=== PATIENT | female | born 1940 | race Caucasian/White ===

== ENCOUNTER 2020-09-14 12:04 | Outpatient (CLI) | payer MEDICARE, OTHER, SELFPAY ==
[2020-09-14 12:41] LABS: D Dimer 1.13 ug/mIFEU (0-0.59)
[2020-09-14 13:04] LABS: NT Pro B Type Natriuretic Pept 6289 pg/mL (0-450)
== END 2020-09-14 12:05 | disposition home or self-care (01) ==
LOC: LAB 12:06
PROVIDERS: Visit Provider Family Medicine
DX: R06.00 Dyspnea, unspecified (principal)
CPT/HCPCS: 83880; 85378

== ENCOUNTER 2021-10-07 12:46 | Outpatient (CLI) | payer MEDICARE, MEDICAID, SELFPAY ==
[2021-10-07 12:50] VITALS: BP 115/71; PULSE 58; RESP 17; TEMP 36.5; O2SAT 97; BMI 16.0
[2021-10-07 13:18] VITALS: BP 115/75; PULSE 50; RESP 20; TEMP 36.6; O2SAT 97
[2021-10-07 13:25] VITALS: BP 117/80; PULSE 50; RESP 17; TEMP 36.6; O2SAT 97
--- NOTE | 2021-10-07 17:53 | PC.NURSE ---
Addendum entered by Loretta Thorpe RN 10/07/21 18:05: Total of 24.6mL given before infusion ultimately paused/stopped Original Note: Pt began c/o chest discomfort 5 mins after infusion began. RN immediately stopped infusion, and obtained pt's current VS. Pt's SPO2 read 86%. Mask removed. RN educated pt to take deep breaths through nose/mouth while setting up portable O2 tank. After 1-2 mins of deep breathing and infusion paused, SPO2 carlos to 97%. Dr. Head and Cook Supervisor updated on current pt status. MD gave new orders that pt was no longer a candidate for covid infusion, and recommended pt to be seen by ED for possible cardiac workup. RN educated on need for ED transfer for further closer evaluation. Pt agreed. VSS and pt's chest discomfort reportedly resolved per pt. Pt transferred to ED after update given to oncoming floor, and taken by wheelchair. phoned and updated on situation and pt's current stable condition. ED RN met in covid waiting room and given transfer report. No other needs.
== END 2021-10-07 12:47 | disposition home or self-care (01) ==
LOC: OPS 12:49
PROVIDERS: PCP Family Medicine; Visit Provider Nurse Practitioner Family
DX: U07.1 COVID-19 (principal)
CPT/HCPCS: 96365

== ENCOUNTER 2021-10-07 13:56 | Emergency (ER) | payer MEDICARE, MEDICAID, SELFPAY ==
[2021-10-07 14:00] VITALS: BP 121/82; PULSE 79; RESP 18; TEMP 36.6; O2SAT 94; BMI 16.7
[2021-10-07 15:04] VITALS: RESP 18; O2SAT 95
--- NOTE | 2021-10-07 15:09 | ED_ITS ---
HPI - SOB/Dyspnea General: Chief Complaint: Shortness of Breath/Dyspnea Stated Complaint: CP post infusion History of Present Illness: HPI Narrative: Patient states a few minutes after she started her MCA infusion she felt some shortness of breath. Infusion was s topped. Patient states she feels fine now that shortness of breath just lasted for approximately a minute she denied any chest pain or any further problems. Sats have been normal. Triage nurse states that she has thick nails and that he thought that the sat was probably not correct at that time. Patient denies any fever or chills. Denies any productive cough. MD elicited complaint: shortness of breath (During MCA infusion) Pertinent past history: other (CHF and hypertension) Onset (ago): minute(s) Context: recent illness Timing: improved Severity: mild Exacerbating factors: nothing Associated symptoms: Reports no associated symptoms; Deny abdominal pain, chest pain, extremity pain, fever(s), nausea or vomiting Treatment prior to arrival: none Review of Systems Const: Denies: fever(s), chills or body aches Eyes: Denies: change in vision or blurry vision ENMT: Denies: throat pain or nasal congestion Card: Denies: chest pain or dyspnea on exertion Resp: Reports: dyspnea (Had shortness of breath lasting less than a minute during MCA infusion); Denies: productive cough or non-productive cough GI: Denies: abdominal pain, nausea or vomiting Musc: Denies: extremity pain Skin/Breast: Denies: rash Neuro: Denies: headache(s) Psych: Denies: anxiety or depression Krzysztof/Lymph: Denies: easy bruising PFSH ED PFSH: Medical History (Updated 08/30/21 @ 16:17 by Shay Macias MD) Atrial fibrillation CHF (congestive heart failure) Family History (Updated 08/26/21 @ 14:53 by Kerry Eduardo RN) Mother CAD (coronary artery disease) Hypertension Father CAD (coronary artery disease) Hypertension Sister Diabetes Hypertension Social History Smoking and tobacco status: never smoked Physical Exam Const: COMMON NORMALS: no acute distress, average body habitus and patient oriented x3 HENMT: COMMON NORMALS: normocephalic HEAD & SCALP: normal to inspection and normocephalic FACE & SINUS: normal facial exam Eye: COMMON NORMALS: conjunctivae normal GENERAL EYE: appearance normal, both eyes and all related structures CONJUNCTIVA: Yes conjunctivae normal Neck/C-Spine: COMMON NORMALS: no JVD Chest: COMMONS NORMALS: normal inspection of the chest Resp: COMMON NORMALS: normal respiratory effort and clear to auscultation bilaterally AUSCULTATION: clear to auscultation bilaterally Cardio: COMMON NORMALS: no JVD, regular rate and regular rhythm RATE: regular rate RHYTHM: regular rhythm GI: COMMON NORMALS: Normal to inspection, nondistended, normoactive bowel sounds present Extremity: COMMON NORMALS: normal to inspection and full ROM Neuro: COMMON NORMALS: patient oriented x3 Course Vital Signs: Vital signs: Vital Signs Temperature 97.9 F 10/07/21 14:00 Pulse Rate 79 10/07/21 14:00 Respiratory Rate 18 10/07/21 15:04 Blood Pressure 121/82 10/07/21 14:00 Pulse Oximetry 95 10/07/21 15:04 Discharge Plan Discharge Prescriptions: No Action carvedilol 12.5 mg tablet 12.5 mg PO BID RF: 0 spironolactone 25 mg tablet 25 mg PO DAILY RF: 0 latanoprost 0.005 % drops 1 drp ophthalmic (eye) DAILY RF: 0 vitamin B complex [B Complex-Vitamin B12] Tablet 1 tab PO DAILY RF: 0 coenzyme Q10 [Co Q-10] 100 mg capsule 100 mg PO DAILY RF: 0 ferrous sulfate 325 mg (65 mg iron) tablet 325 mg PO DAILY RF: 0 omega-3 fatty acids [Fish Oil Concentrate] 1,000 mg capsule 1,000 mg PO DAILY RF: 0 calcium carb-mag ox-zinc sulf 334-134-5 mg tablet 1 tab PO DAILY RF: 0 vitamin E 200 unit capsule 200 unit PO DAILY RF: 0 ascorbic acid (vitamin C) 1,000 mg tablet 1,000 mg PO DAILY RF: 0 folic acid 400 mcg tablet 0.4 mg PO DAILY RF: 0 pyridoxine (vitamin B6) 100 mg tablet 100 mg PO DAILY RF: 0 potassium chloride 20 mEq tablet extended release 20 meq PO DAILY RF: 0 fluticasone propionate [Allergy Relief (fluticasone)] 50 mcg/actuation spray,suspension 1 spray intranasal DAILY RF: 0 Eliquis 5 mg tablet 2.5 mg PO BID RF: 0 furosemide 40 mg tablet 20 mg PO DAILY RF: 0 meclizine 25 mg tablet 25 mg PO DAILY PRNRF: 0 Coding Level of Care Code ED W[employer]er for [employer]
[2021-10-07 15:38] VITALS: BP 137/92; PULSE 81; RESP 18; TEMP 36.7; O2SAT 95
[2021-10-07 15:40] VITALS: BP 137/92; PULSE 81; RESP 18; TEMP 36.7; O2SAT 95
== END 2021-10-07 15:42 | disposition home or self-care (01) ==
PROVIDERS: Emergency Provider Nurse Practitioner Family; PCP Family Medicine
DX: R06.02 Shortness of breath (principal); Z79.01 Long term (current) use of anticoagulants; I50.9 Heart failure, unspecified; U07.1 COVID-19
CPT/HCPCS: 96365; 99283

== ENCOUNTER → 2022-02-24 15:00 | Outpatient (BNVA) | payer MEDICARE, SELFPAY | PROVIDERS: PCP Family Medicine; Visit Provider Internal Medicine Cardiovascular Disease | DX: I48.19 Other persistent atrial fibrillation (principal); I11.0 Hypertensive heart disease with heart failure; I50.9 Heart failure, unspecified | CPT/HCPCS: 99214 ==

== ENCOUNTER 2022-04-26 21:17 | Inpatient (IN) | payer MEDICARE, MEDICAID, SELFPAY ==
[2022-04-26 21:25] VITALS: BP 118/67; PULSE 82; RESP 18; TEMP 36.4; O2SAT 99; BMI 16.5
--- NOTE | 2022-04-26 21:36 | ECG_ITS ---
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 Measurements Intervals [place] Rate: 78 P: [place]: QRS: 87 QRSD: 90 T: 73 QT: 369 QTc: 421 Interpretive Statements ATRIAL FIBRILLATION MODERATE ST DEPRESSION [0.05+ mV ST DEPRESSION] No previous ECG available for comparison Electronically Signed On 04-27-2022 20:58:34 CDT by Soraya Chadwick M.D. [email or web address] [email or web address] [email or web address] Ops [id number]
--- NOTE | 2022-04-26 21:36 | CTR_ITS ---
PROCEDURE INFORMATION: Exam: CT Head Without Contrast Exam date and time: 04/26/2022 9:50 PM Age: 81 years old Clinical indication: Visual disturbance and weakness, extremity; Patient HX: Sudden onset of left eye blurriness and left arm numbness. Recently stopped blood thinners for upcoming dental procedure. ; Additional info: CVA TECHNIQUE: Imaging protocol: Computed tomography of the head without contrast. Radiation optimization: All CT scans at this facility use at least one of these dose optimization techniques: automated exposure control; mA and/or kV adjustment per patient size (includes targeted exams where dose is matched to clinical indication); or iterative reconstruction. COMPARISON: No relevant prior studies available. RADIATION DOSE METRICS: Total DLP (mGy-cm): 1122.38 FINDINGS: Brain: There is no acute intracranial hemorrhage or mass effect. Moderate diffuse volume loss is within the range of normal for patient age. There are small vessel ischemic changes within the periventricular and subcortical white matter, but the normal cerda-white matter delineation is maintained. Cerebral ventricles: No ventriculomegaly. Paranasal sinuses: Visualized sinuses are unremarkable. No fluid levels. Mastoid air cells: Visualized mastoid air cells are well aerated. Bones/joints: Unremarkable. No acute fracture. Soft tissues: Unremarkable. CT/CT head wo con* [id number] IMPRESSION: No acute hemorrhage or edema.
--- NOTE | 2022-04-26 21:37 | W.ED.GENADLT ---
HPI - General Adult General: Chief complaint: General Medical Stated complaint: Left Side Body Numb Time Seen by Provider: 04/26/22 21:31 History of Present Illness: 81-year-old presents due to left-sided body and facial numbness and transient vision loss. She was watching TV and felt the vision in her left eye was blurry but this is now resolved. She also felt body and face numbness that is still present but improving. This started approximately 45 minutes ago. Patient was previously on Eliquis but was taken off of it several days ago in preparation for dental procedure. Denies any headache or any other focal pain. Denies any current vision change. Denies any focal weakness. Denies any hearing change. Denies any vertigo. Review of Systems Narrative: - CONSTITUTIONAL: Denies weight loss, fever and chills. - HEENT: Denies changes in vision and hearing. - RESPIRATORY: Denies SOB and cough. - CV: Denies palpitations and CP. - GI: Denies abdominal pain, nausea, vomiting and diarrhea. - : Denies dysuria and urinary frequency. - MSK: Denies myalgia and joint pain. - SKIN: Denies rash and pruritus. - NEUROLOGICAL: As above - PSYCHIATRIC: Denies suicidal ideation PFSH ED PFSH: Medical History (Updated 02/26/22 @ 21:44 by Prema Schultz MD) Atrial fibrillation CHF (congestive heart failure) Dizziness Surgical History (Updated 02/26/22 @ 21:44 by Prema Schultz MD) S/P coronary angiogram Family History Mother CAD (coronary artery disease) Hypertension Father CAD (coronary artery disease) Hypertension Sister Diabetes Hypertension Social History Smoking and tobacco status: never smoked Physical Exam Narrative: EXAM NARRATIVE: - GENERAL: Alert and oriented x 3. No acute distress. Well-nourished. - EYES: EOMI. Anicteric. - HENT: Atraumatic, no C-spine tenderness. Moist mucous membranes. No scleral icterus. No cervical lymphadenopathy. - LUNGS: Clear to auscultation bilaterally. No accessory muscle use. Equal lung sounds bilaterally. No respiratory distress. - CARDIOVASCULAR: Regular rate and rhythm. No murmur. No JVD. - ABDOMEN: Soft, non-tender and non-distended. Negative CVA tenderness bilaterally, no rebound or guarding, negative Logan sign. No palpable masses. - EXTREMITIES: No edema. Non-tender. - SKIN: No rashes or lesions. Warm. - NEUROLOGIC: No meningismus, left facial and body numbness. Slightly greater in the lower extremities and upper extremity. Otherwise no focal deficit. - PSYCHIATRIC: Cooperative. Appropriate mood and affect. Course Vital Signs: Vital signs: Vital Signs Temperature 97.6 F 04/26/22 21:25 Pulse Rate 82 04/26/22 21:25 Respiratory Rate 18 04/26/22 21:25 Blood Pressure 118/67 04/26/22 21: Pulse Oximetry 99 04/26/22 21:25 MDM - General Adult Medical Decision Making 81-year-old presents due to transient vision loss in the left eye and improving left-sided body numbness. No speech difficulty. There is no weakness. Vision is currently intact. Otherwise nonfocal neurologic sign. CT scan of the head does not reveal any intracranial hemorrhage. She has previously been on Eliquis due to A. fib but is stopped taking it Thursday in preparation for dental procedure next week. She denies any headache or jaw pain. Discussed with teleneurology at [facility] and at this time tPA is not recommended due to relatively minor debilitation from symptoms. They do not recommend emergent CTA but do recommend admission for MRI and stroke work-up. Remainder of lab work and imaging reviewed. Discussed with hospitalist and they agreed patient would benefit from admission. Patient admitted in stable condition. Further evaluation management per hospitalist team. Lab Data : 04/26/22 21:45 04/26/22 21:45 Laboratory Results WBC 4.8 10^3/uL (4.0-10.0) 04/26/22 21:45 RBC 3.67 10^6/uL (4.1-5.3) L 04/26/22 21:45 Hgb 11.5 g/dL (11.5-15.3) 04/26/22 21:45 Hct 36.2 % (37.0-47.0) L 04/26/22 21:45 MCV 98.6 fl (81-99) 04/26/22 21:45 MCH 31.3 pg (28.0-34.0) 04/26/22 21:45 MCHC 31.8 g/dL (30.0-36.0) 04/26/22 21:45 RDW 12.3 % (12.1-15.1) 04/26/22 21:45 Plt Count 204 10^3/cmm (130-400) 04/26/22 21:45 MPV 10.9 fL (7.4-10.4) H 04/26/22 21:45 Neut % (Auto) 68.1 % 04/26/22 21:45 Lymph % (Auto) 14.8 % 04/26/22 21:45 [place] % (Auto) 11.5 % 04/26/22 21:45 Eos % (Auto) 4.8 % 04/26/22 21:45 Baso % (Auto) 0.4 % 04/26/22 21:45 Neut # (Auto) 3.27 10^3/uL (1.8-7.7) 04/26/22 21:45 Lymph # (Auto) 0.7 10^3/uL (0.8-4.8) L 04/26/22 21:45 [place] # (Auto) 0.6 10^3/uL (0.2-0.9) 04/26/22 21:45 Eos # (Auto) 0.2 10^3/uL (0.0-0.8) 04/26/22 21:45 Baso # (Auto) 0.0 10^3/uL (0.0-0.1) 04/26/22 21:45 Nucleated RBC % (auto) 0 % 04/26/22 21:45 Nucleated RBCs # 0.0 /100WBC 04/26/22 21:45 PT Cancelled 04/26/22 21:45 INR Cancelled 04/26/22 21:45 APTT Cancelled 04/26/22 21:45 POC Glucose 149 mg/dL (70-110) H 04/26/22 21:45 EKG Data EKG 1: Other EKG comments: A. fib, rate of 78, no sign of acute ischemia or other acute abnormality. Discharge Plan Discharge Condition: Stable Prescriptions: No Action spironolactone 25 mg tablet 25 mg PO DAILY 0RF latanoprost 0.005 % drops 1 drp ophthalmic (eye) DAILY 0RF vitamin B complex [B Complex-Vitamin B12] Tablet 1 tab PO DAILY 0RF coenzyme Q10 [Co Q-10] 100 mg capsule 100 mg PO DAILY 0RF ferrous sulfate 325 mg (65 mg iron) tablet 325 mg PO DAILY 0RF omega-3 fatty acids [Fish Oil Concentrate] 1,000 mg capsule 1,000 mg PO DAILY 0RF calcium carb-mag ox-zinc sulf 334-134-5 mg tablet 1 tab PO DAILY 0RF Rx Instructions: administer with a meal vitamin E 200 unit capsule 200 unit PO DAILY 0RF ascorbic acid (vitamin C) 1,000 mg tablet 1,000 mg PO DAILY 0RF folic acid 400 mcg tablet 0.4 mg PO DAILY 0RF pyridoxine (vitamin B6) 100 mg tablet 100 mg PO DAILY 0RF potassium chloride 20 mEq tablet extended release 20 meq PO DAILY 0RF fluticasone propionate [Allergy Relief (fluticasone)] 50 mcg/actuation spray,suspension 1 spray intranasal DAILY 0RF Rx Instructions: administer into each nostril Eliquis 5 mg tablet 2.5 mg PO BID 0RF furosemide 40 mg tablet 20 mg PO DAILY 0RF meclizine 25 mg tablet 25 mg PO DAILY PRN0RF carvedilol 12.5 mg tablet 12.5 mg PO BID Qty: 180 2RF Rx Instructions: must administer with a meal/food Referrals: Rodrigue Dillon MD [Primary Care Provider] - Coding Level of Care Code ED Terrapin Fisher for [employer]
[2022-04-26 21:49] LABS: Glucose Point of Care 149 mg/dL (70-110)
[2022-04-26 21:53] LABS: Basophils % 0.4 %; Eosinophils # 0.2 10^3/uL (0.0-0.8); Eosinophils % 4.8 %; Hematocrit 36.2 % (37.0-47.0); Hemoglobin 11.5 g/dL (11.5-15.3); Lymphocytes # 0.7 10^3/uL (0.8-4.8); Lymphocytes % 14.8 %; Mean Corpuscular HGB Conc 31.8 g/dL (30.0-36.0); Mean Corpuscular Hemoglobin 31.3 pg (28.0-34.0); Mean Corpuscular Volume 98.6 fl (81-99); Mean Platelet Volume 10.9 fL (7.4-10.4); Monocytes # 0.6 10^3/uL (0.2-0.9); Monocytes % 11.5 %; Neutrophils # 3.27 10^3/uL (1.8-7.7); Neutrophils % 68.1 %; Nucleated Red Blood Cells % 0 %; Platelet Count 204 10^3/cmm (130-400); Red Blood Count 3.67 10^6/uL (4.1-5.3); Red Cell Distribution Width 12.3 % (12.1-15.1); White Blood Count 4.8 10^3/uL (4.0-10.0)
[2022-04-26 22:14] VITALS: BP 101/70; PULSE 78; RESP 19; O2SAT 90
[2022-04-26 22:16] LABS: Alanine Aminotransferase 15 U/L (0-33); Alkaline Phosphatase 62 IU/L (35-105); Blood Urea Nitrogen 24 mg/dL (8-23); Calcium 9.2 mg/dL (8.5-10.5); Carbon Dioxide 25 mmol/L (22-29); Chloride 96 mmol/L (98-107); Globulin 3.3 g/dL (1.3-4.6); Glucose 147 mg/dL (65-115); Osmolality Calculated 279 mOsm/kg (285-295); Sodium 131 mmol/L (136-145); Total Bilirubin 0.5 mg/dL (0.15-1.2); Total Protein 7.3 g/dL (6.6-8.7)
[2022-04-26 22:20] LABS: Anion Gap 14.3 (5-19); Aspartate Amino Transferase 27 U/L (0-32); Potassium 4.3 mmol/L (3.5-5.1)
[2022-04-26 22:30] VITALS: BP 125/82; PULSE 87; RESP 18; O2SAT 98
[2022-04-26 22:34] LABS: INR 1.05 (0.8-1.2)
[2022-04-26 22:35] LABS: Partial Thromboplastin Time 26.7 SECONDS (23.9-36.7)
[2022-04-26 22:45] VITALS: BP 125/82; PULSE 87; RESP 18; O2SAT 98
--- NOTE | 2022-04-26 23:30 | PM.HP ---
Providers/Chief Complaint Admitting Physician: Albin Nogueira Primary Care Provider: Rodrigue Dillon MD Chief Complaint: Left Side Body Numb History of Present Illness Very pleasant 81-year-old lady with history of nonvalvular atrial fibrillation, on Eliquis adjusted for her age and weight, severe MVR, was not found candidate for mitral clip, CHF. This evening she experienced symptoms of left-sided numbness, on the left side of her body including her upper and lower extremity, left side face. She tried shaking her left arm to see if that would improve the symptoms. This was accompanied by transient blurred vision. The symptoms started about 845 this evening. She was assessed in ER without acute findings on CT of the head, blood glucose 147, together with with telestroke services at [facility], and not found to be a candidate for tPA. Recommended hospitalization for additional assessment post CVA. Of note she recently she has been having an ache in her tooth. She normally wears partial dentures, and left upper premolar has been aching intermittently and broke off yesterday. She has had no significant facial swelling, no fevers or chills. She was started on Augmentin on Thursday, and stopped taking Eliquis instructed on Thursday in preparation for a procedure to remove the tooth on Thursday. She otherwise has been in baseline state of health. She was sitting in a chair watching TV when the events transpired. She denies any persistence of blurred vision. She denies any headache, has no temporal pain, denies any jaw claudication or any prior episodes of transient loss of vision. Complains only of occasional itchiness behind her ears. She and her family deny that she has an allergy to aspirin which is listed. They state it was listed due to her doctor telling her not to take aspirin together with anticoagulants was not to increase risk of bleeding without additional need for aspirin at the time. Review of Systems Const: Denies: fever(s), chills, body aches or malaise Eyes: Reports: blurry vision (now resolved); Denies: change in vision, eye discomfort or eye redness ENMT: Reports: dental pain and other (Occasional itchiness behind her ears); Denies: throat pain, oral sores or ear or mastoid pain Card: Denies: chest pain, edema, pre-syncope or dyspnea on exertion Resp: Denies: dyspnea, productive cough, change in phlegm color or hemoptysis GI: Denies: abdominal pain, nausea, vomiting, diarrhea, constipation, hematochezia or melena : Denies: flank pain, urinary frequency or hematuria Musc: Denies: back pain, joint swelling or joint redness Skin/Breast: Denies: rash or new lesions Neuro: Reports: numbness in extremities, sensory changes, lack of coordination (L side) and difficulty walking; Denies: headache(s), weakness in extremities, dizziness, confusion, Slurred speech present, difficulty communicating thoughts, seizure-like activity or involuntary movements Endo: Denies: polyuria or polydipsia Krzysztof/Lymph: Denies: easy bleeding or tender lymph nodes All/Imm: Denies: urticaria or tongue swelling Medications/Allergies Home Medications Medication Instructions Recorded Confirmed Last Taken Type apixaban 5 mg tablet (Eliquis) 2.5 mg PO BID tab 08/26/21 04/26/22 04/24/22 History ascorbic acid (vitamin C) 1,000 mg 1,000 mg PO DAILY tab 08/26/21 04/26/22 04/26/22 History tablet calcium carbonate 334 mg-magnesium 1 tab PO DAILY tab 08/26/21 04/26/22 04/26/22 History oxide 134 mg-zinc sulf 5 mg tablet coenzyme Q10 100 mg capsule (Co 100 mg PO DAILY 08/26/21 04/26/22 04/26/22 History Q-10) ferrous sulfate 325 mg (65 mg 325 mg PO DAILY 08/26/21 04/26/22 04/26/22 History iron) tablet fluticasone propionate 50 1 spray INTRANASAL DAILY 08/26/21 08/26/21 Unknown History mcg/actuation nasal spray,suspension (Allergy Relief (fluticasone)) folic acid 400 mcg tablet 0.4 mg PO DAILY 08/26/21 04/26/22 04/26/22 History furosemide 40 mg tablet 20 mg PO DAILY tab 08/26/21 04/26/22 10/07/21 08:00 History latanoprost 0.005 % eye drops 1 drp OPHTHALMIC (EYE) DAILY 08/26/21 04/26/22 04/26/22 History meclizine 25 mg tablet 25 mg PO DAILY PRN 08/26/21 04/26/22 Unknown History omega-3 fatty acids 1,000 mg 1,000 mg PO DAILY 08/26/21 04/26/22 04/26/22 History capsule (Fish Oil Concentrate) potassium chloride 20 mEq 20 meq PO DAILY 08/26/21 04/26/22 04/26/22 History tablet,extended release pyridoxine (vitamin B6) 100 mg 100 mg PO DAILY tab 08/26/21 04/26/22 04/26/22 History tablet spironolactone 25 mg tablet 25 mg PO DAILY 08/26/21 04/26/22 04/26/22 History vitamin B complex (B 1 tab PO DAILY 08/26/21 04/26/22 04/26/22 History Complex-Vitamin B12) vitamin E 200 unit capsule 200 unit PO DAILY 08/26/21 04/26/22 04/26/22 History carvedilol 12.5 mg tablet 12.5 mg PO BID #180 tab 12/19/21 04/26/22 04/26/22 Rx Allergies Allergy/AdvReac Type Severity Reaction Status Date / Time aspirin Allergy Unknown Unknown Verified 08/26/21 14:48 pseudoephedrine Allergy Unknown Unknown Verified 08/26/21 14:48 [From Sudafed] nitrofurantoin AdvReac Mild Abdominal Verified 08/26/21 08:43 [From Macrobid] Pain PFSH Acute PFSH: Medical History Atrial fibrillation CHF (congestive heart failure) Dizziness Surgical History S/P coronary angiogram Family History Mother CAD (coronary artery disease) Hypertension Father CAD (coronary artery disease) Hypertension Sister Diabetes Hypertension Social History Smoking and tobacco status: never smoked Alcohol intake: never Substance/Drug Use: never Lives independently: Yes Household members: spouse Marital status: Vitals/I&O/Wt Last Vital Signs Temp 97.6 F 04/26/22 21:25 Pulse 87 04/26/22 22:45 Resp 18 04/26/22 22:45 BP 125/82 04/26/22 22:45 Pulse Ox 98 04/26/22 22:45 Weight last 48 hrs Weight 40.823 kg Physical Exam Narrative: Accompanied at bedside by 3 of her granddaughters. Const: COMMON NORMALS: alert GENERAL APPEARANCE: cooperative ORIENTATION/CONSCIOUSNESS: Yes awake HENMT: COMMON NORMALS: normocephalic, EAC's normal, Normal external nose present and moist oral mucous membranes HEAD & SCALP: normocephalic NOSE: Normal external nose present EXTERNAL AUDITORY CANAL: EAC's normal OTHER: Broken upper left premolar, no significant erythema or swelling around it. Neck/C-Spine: COMMON NORMALS: no meningeal signs Chest: CHEST: Yes Symmetrical chest wall rise Resp: COMMON NORMALS: clear to auscultation bilaterally AUSCULTATION: clear to auscultation bilaterally Cardio: RATE: regular rate RHYTHM: abnormal rhythm irregularly irregular GI: COMMON NORMALS: Normal to inspection, nondistended, normoactive bowel sounds present, Soft to palpation and non-tender PALPATION: Yes Soft to palpation Extremity: COMMON NORMALS: no pedal edema Neuro: COMMON NORMALS: moves all extremities SENSORIUM/ORIENTATION: Yes alert MENINGEAL SIGNS: Yes no meningeal signs COORDINATION/BALANCE: [id number] test normal (subjectively feels some lack of coordination, but did well) and other (mild ataxia LLE) SPEECH: speech normal (No different than usual as per her family.) SENSORY EXAM: Yes extremities (Mildly diminished left side upper and lower, states improving.) MOTOR EXAM: Pronator motor function not present (Upper or lower) OTHER: She is keenly alert and responsive. No trouble with following directions or answering questions. 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 No trouble with horizontal tracking. Visual carey full to confrontation. Psych: COMMON NORMALS: mental status grossly normal Skin: COMMON NORMALS: no wounds RASHES: no rashes Data : 04/26/22 21:45 04/26/22 21:45 A&P Assessment and plan (1) CVA (cerebral vascular accident): Suspected CVA, symptoms started around 8:45 PM this evening. With some numbness, left upper and lower as well as facial Had some transient blurred vision, but this is resolved. Reports numbness on the left side is improving. He is noted to have some minimal ataxia on the left lower, left upper subjectively, but did well on FNF. Walk to the bathroom with some standby assist due to some loss of coordination on the left side. She was not found a candidate for tPA with telestroke neurology assessment. 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 Start aspirin, statin. (Please see above regarding noted aspirin allergy). Permissive hypertension for now. For now Lovenox, however, depending on her progress in the hospital, consider either resumption of Eliquis with delay of dental procedure until after without other acute stroke phase, or if needing more urgent procedure in case of progressive dental infection or other concerns, consider continue Lovenox. Depending on consideration of risk of bleeding, if minor procedure, consider holding anticoagulation closer to the procedure. If low risk procedure perhaps could be considered performed perhaps about 48 hours after Eliquis dose considering her renal function. If moderate to severe risk of bleeding, may need to hold longer. At this time no Plavix as stroke is suspected rather cardioembolic, but also in addition with some loss of coordination and with aspirin and anticoagulant on board, dual antiplatelet may increase risk of bleeding with some risk of fall. Additional assessment by PT, OT, ST. In case of high risk of falls found, with concern for bleeding risk being high, perhaps consideration may be given to assessment for left atrial appendage closure device. Additional assessment by carotid Doppler. TTE. Monitor on telemetry. I do see she has some episodes of bradycardia recorded in October, consider quality assurance monitor at discharge to exclude transient severe bradycardia or pauses as cause of transient hypoperfusion. Additionally MRI of the brain recommended by telestroke neurology on nonurgent basis. She has claustrophobia, and prefers to perform open MRI. Please refer her after discharge. Please refer her for follow-up with neurology in office within a week. At this time we have not seen evidence of dental infection causing sepsis or causing her symptoms, but monitor for any changes. Has not had any other symptoms to suggest temporal arteritis. In case of appearance of symptoms, consider also assessment of inflammatory markers. UA has been ordered but she has not yet had enough in her to provide a sample. Status: Acute (2) Broken tooth: Continue amoxicillin. Will need follow-up with dentist, if possible would consider delaying procedure until she is after acute phase of CVA. Status: Acute (3) Atrial fibrillation: Carvedilol held for now for permissive hypertension. In case heart rates increasing, consider low-dose metoprolol to help with control. Anticoagulation considerations as above. Status: Acute Qualifiers: Atrial fibrillation type: persistent (not longstanding) Qualified Code(s): I48.19 - Other persistent atrial fibrillation Plan ISHA: Now with her lab work coming back I also see that she has minimal ISHA, creatinine 1.1 compared to usual around 1. Hold spironolactone for now. Recheck renal function. UA has been ordered, but she has not yet had to go. History of CHF: Not in exacerbation History of severe MVR, not found to be candidate for MitraClip Attestations Medical Necessity Statement*: Admission of over 2 midnights is anticipated for assessment of management of acute CVA, and lady of advanced age with recent dental problems, atrial fibrillation, anticoagulation, ISHA. Coding Level of Care Code Acute [facility] Knife Trimmer for [facility] Maryse Diagnoses CVA (cerebral vascular accident) I63.9 Broken tooth S02.5XXA Atrial fibrillation I48.19 Atrial fibrillation type: persistent (not longstanding)
[2022-04-26 23:55] VITALS: BP 126/79; PULSE 80; RESP 22; TEMP 36.6; O2SAT 97
[2022-04-27] MEDS: latanoprost 0.005% Op Soln 2.5 mL Btl 1 DROP EYE-BOTH (00:31)
[2022-04-27] MEDS: amoxicillin 500 mg Capsule PO ×2 (00:32→08:53)
[2022-04-27] MEDS: enoxaparin 40 mg/0.4 mL Syringe SUBCUT (00:32)
[2022-04-27 00:36] LABS: Bilirubin Urine Neg (Negative); Blood Urine Neg (Negative); Glucose Urine UA Norm (Normal); Ketones Urine Negative (Negative); Leukocyte Esterase Urine Negative (Negative); Nitrate Urine Negative (Negative); Protein Urine Neg (Negative); Urine Appearance Clear (CLEAR); Urine Color Yellow (Yellow); Urobilinogen Urine Neg (Negative); pH Urine 5 (5-7)
[2022-04-27 00:37] LABS: RBC Urine 0-4 /hpf (0-2); Squamous Epithelial Cell Urine 25-40 /hpf (0-5); WBC Urine 0-4 /hpf (0-5)
[2022-04-27 00:38] LABS: Add Urine Culture? No; Amorphous Sediment Urine TRACE /hpf; Bacteria Urine TRACE /hpf; Mucus Urine 1+ /hpf
[2022-04-27] MEDS: aspirin 81 mg EC Tablet 162 MG PO (01:22)
[2022-04-27 01:25] VITALS: BP 126/79; PULSE 80; RESP 22; TEMP 36.6
[2022-04-27 04:25] VITALS: BP 110/69; PULSE 80; RESP 14; TEMP 36.7; O2SAT 98
[2022-04-27 05:25] VITALS: BP 110/69; PULSE 80; RESP 14; TEMP 36.7
[2022-04-27 05:36] LABS: Basophils % 0.4 %; Eosinophils # 0.2 10^3/uL (0.0-0.8); Eosinophils % 3.2 %; Hematocrit 32.9 % (37.0-47.0); Hemoglobin 11.1 g/dL (11.5-15.3); Lymphocytes # 0.8 10^3/uL (0.8-4.8); Lymphocytes % 14.8 %; Mean Corpuscular HGB Conc 33.7 g/dL (30.0-36.0); Mean Corpuscular Hemoglobin 31.7 pg (28.0-34.0); Mean Platelet Volume 10.6 fL (7.4-10.4); Monocytes # 0.7 10^3/uL (0.2-0.9); Monocytes % 13.3 %; Neutrophils # 3.57 10^3/uL (1.8-7.7); Neutrophils % 67.5 %; Nucleated Red Blood Cells % 0 %; Platelet Count 181 10^3/cmm (130-400); Red Cell Distribution Width 12.2 % (12.1-15.1); White Blood Count 5.3 10^3/uL (4.0-10.0)
[2022-04-27 05:58] LABS: Anion Gap 13.1 (5-19); Blood Urea Nitrogen 22 mg/dL (8-23); Calcium 9.1 mg/dL (8.5-10.5); Carbon Dioxide 27 mmol/L (22-29); Chloride 101 mmol/L (98-107); Chol HDL Ratio 2.95 mg/dL (0.0-4.40); Cholesterol 165 mg/dL (0-200); Glucose 86 mg/dL (65-115); HDL Cholesterol 56 mg/dL (60-100); LDL Cholesterol Calculated 99 mg/dL (50-129); LDL HDL Ratio 1.77 RATIO (0.00-3.22); Osmolality Calculated 287 mOsm/kg (285-295); Potassium 4.1 mmol/L (3.5-5.1); Sodium 137 mmol/L (136-145); Triglycerides 51 mg/dL (0-150)
[2022-04-27 06:00] VITALS: PULSE 77
--- NOTE | 2022-04-27 06:00 | USCV_ITS ---
Donato Joy Age: 81 Gender: F : 1940 Exam Date: 04/27/2022 07:11 Ordering Phys: Albin Nogueira MD Technologist: Joel Langston Exam Location: [facility] [place] Indication: ? cva Risk Factors: Previous Vascular Surgery: Right Brachial BP: / Left Brachial BP: / Right Left Velocity (cm/s) Spectral Plaque Velocity (cm/s) Spectral Plaque Syst/Diast Broadening Syst/Diast Broadening 55.20/ 11.20 Prox CCA 44.90 / 12.00 34.80/ 7.90 Mid CCA 37.60 / 8.10 49.30/ 15.80 Distal CCA 41.40 / 8.10 67.80/ 13.20 Prox ICA 44.90 / 13.20 53.95/ 14.70 Mid ICA 52.60 / 12.80 54.40/ 16.70 Distal ICA 67.00 / 15.10 61.35 ECA 55.10 1.11 ICA/CCA 1.49 Antegrade Vertebral Antegrade 34.60/ 6.40 cm/s 57.20/ 15.10 cm/s Tri Subclavian Tri 60.70 92.00 FINDINGS Intimal thickening in the common carotid arteries bilaterally. Minimal plaques at the bifurcations and proximal internal carotid arteries Antegrade flow in the vertebral arteries bilaterally. Normal Doppler velocities in the external carotid, subclavian and vertebral arteries bilaterally CONCLUSIONS Minimal plaques at the bifurcations bilaterally, suggesting less than 50% stenosis. Intimal thickening in the common carotid arteries bilaterally No significant stenosis in the external carotid, subclavian and vertebral arteries bilaterally, based on the above findings Dr Soraya Chadwick MD [facility] (Electronically Signed) Final Date: 27 April 2022 10:13 S
[2022-04-27 06:20] LABS: Estmated Average Glucose 105; Hemoglobin A1C 5.3 % (4.0-6.0)
[2022-04-27 09:14] VITALS: BP 115/75; PULSE 94; RESP 12; TEMP 36.8; O2SAT 93
--- NOTE | 2022-04-27 11:23 | P.DS_ITS ---
Discharge Providers Date of Admission: 04/26/22 22:16 Date of Discharge: April 27, 2022 Attending Provider at Admission: Albin Nogueira Attending Provider at Discharge: Randell Hugo MD Primary Care Provider: Rodrigue Dillon MD Diagnoses at Discharge Discharge Diagnosis (1) CVA (cerebral vascular accident): (2) Broken tooth: (3) Atrial fibrillation: Qualifiers: Atrial fibrillation type: persistent (not longstanding) Qualified Code(s): I48.19 - Other persistent atrial fibrillation Reason for Visit Reason for Visit: Left Side Body Numb Hospital Course Hospital Course 81-year-old lady with pmh of Atrial.Fib, on Eliquis ,severe MVR, CHF.admitted for the management of Ac CVA as she presented with lt sided numbness in upper as well as lower extremity as well as on the lt sided of face.She had recently stopped taking her eliquis in preparation for denatl surgery to be done on coming thursday,she was not taking eliquis since thursday. She was kept on stroke protocol, C.T head without contrast: Failed to show any acute intracranial pathology,2D eCHO : Normal left ventricular size and systolic function, EF 69 %. No ?regional wall motion abnormalities.Markedly dilated left atrium. Moderately increased right atrial size. Normal RV size and ejection fraction.?Severe bileaflet mitral valve prolapse- grade 3.Moderate mitral valve regurgitation.Thickened aortic valve. Trace aortic valve regurgitation.Dalt-eo-tctqhbef tricuspid valve regurgitation. Thickened tricuspid valve.? Estimated pulmonary artery peak systolic pressure 42 mmHg?There is no pericardial effusion.?There are no intracardiac masses.She was kept on Aspirin,statin, eliquis was resumed, permissive HTN,Telemetry monitoring, PT Evaluation,at the time of discharge she had no significant lt sided weakness,had no speech, or swallow issues, sensations were intact,she was ambulating independently. She was discharged home in stable condition.She has been asked to consult her PCP,her Wellness Manager as well as dentist, regarding future course of her dental surgery,she is no strong indication for Brdiging Ac if the surgery is avoided for 1 to 3 months,if not lovenox can be used for bridging. Overall patient was discharged in stable condition.CTA was cancelled as based on my clinical assessment Posterior circulation stroke is less likely. Currently due to additional of aspirin to eliquis, her risk of bleeding has increased, this has been conveyed to her.Patient and family has verbalized understanding. Physical Exam Const: COMMON NORMALS: patient oriented x3 HENMT: COMMON NORMALS: normocephalic and atraumatic HEAD & SCALP: normocephalic and atraumatic Chest: CHEST: Yes Symmetrical chest wall rise Resp: COMMON NORMALS: clear to auscultation bilaterally EFFORT & INSPECTION: Yes symmetric chest movement AUSCULTATION: clear to auscultation bilaterally Cardio: COMMON NORMALS: regular rate, regular rhythm, S1 normal heart sound present, S2 normal heart sound present, No gallops present (Cardio), No murmurs present (Cardio), No rub (Cardio) and Peripheral pulses 2+ throughout RATE: regular rate RHYTHM: regular rhythm HEART SOUNDS: S1 normal heart sound present and S2 normal heart sound present PERIPHERAL PULSES: Peripheral pulses 2+ throughout GI: COMMON NORMALS: Normal to inspection, nondistended, normoactive bowel sounds present, Soft to palpation, non-tender, No hepatosplenomegaly present and no masses AUSCULTATION: Yes normoactive bowel sounds PALPATION: Yes Soft to palpation and Yes No hepatosplenomegaly present RECTAL EXAM: deferred Extremity: COMMON NORMALS: no clubbing, cyanosis or edema and no pedal edema Neuro: COMMON NORMALS: patient oriented x3 Discharge Data Studies Completed and Pending Completed Studies During Hospitalization Category Date Time Status CT head wo con* [id number] Stat Cat Scan 04/26/22 21:36 Completed CV carotid duplex BI* [id number] Routine Ultrasound 04/27/22 06:00 Completed CV. echo w/w bubble cont [id number] Routine Ultrasound 04/27/22 23:55 Completed Pending at discharge Category Date Time Status Basic Metabolic Panel AM LABS Lab 04/28/22 04:00 Ordered Basic Metabolic Panel AM LABS Lab 04/29/22 04:00 Ordered Basic Metabolic Panel AM LABS Lab 04/30/22 04:00 Ordered Complete Blood Count w/Auto AM LABS Lab 04/28/22 04:00 Ordered Complete Blood Count w/Auto AM LABS Lab 04/29/22 04:00 Ordered Complete Blood Count w/Auto AM LABS Lab 04/30/22 04:00 Ordered Radiology Impressions Head CT 04/26/22 21:36 IMPRESSION: No acute hemorrhage or edema. Laboratory Results WBC 5.3 10^3/uL (4.0-10.0) 04/27/22 05:10 RBC 3.50 10^6/uL (4.1-5.3) L 04/27/22 05:10 Hgb 11.1 g/dL (11.5-15.3) L 04/27/22 05:10 Hct 32.9 % (37.0-47.0) L 04/27/22 05:10 MCV 94.0 fl (81-99) 04/27/22 05:10 MCH 31.7 pg (28.0-34.0) 04/27/22 05:10 MCHC 33.7 g/dL (30.0-36.0) D 04/27/22 05:10 RDW 12.2 % (12.1-15.1) 04/27/22 05:10 Plt Count 181 10^3/cmm (130-400) 04/27/22 05:10 MPV 10.6 fL (7.4-10.4) H 04/27/22 05:10 Neut % (Auto) 67.5 % 04/27/22 05:10 Lymph % (Auto) 14.8 % 04/27/22 05:10 [place] % (Auto) 13.3 % 04/27/22 05:10 Eos % (Auto) 3.2 % 04/27/22 05:10 Baso % (Auto) 0.4 % 04/27/22 05:10 Neut # (Auto) 3.57 10^3/uL (1.8-7.7) 04/27/22 05:10 Lymph # (Auto) 0.8 10^3/uL (0.8-4.8) 04/27/22 05:10 [place] # (Auto) 0.7 10^3/uL (0.2-0.9) 04/27/22 05:10 Eos # (Auto) 0.2 10^3/uL (0.0-0.8) 04/27/22 05:10 Baso # (Auto) 0.0 10^3/uL (0.0-0.1) 04/27/22 05:10 Nucleated RBC % (auto) 0 % 04/27/22 05:10 Nucleated RBCs # 0.0 /100WBC 04/27/22 05:10 PT 14.00 SECONDS (12.1-14.9) 04/26/22 22:19 INR 1.05 (0.8-1.2) 04/26/22 22:19 APTT 26.7 SECONDS (23.9-36.7) 04/26/22 22:19 Sodium 137 mmol/L (136-145) 04/27/22 05:10 Potassium 4.1 mmol/L (3.5-5.1) 04/27/22 05:10 Chloride 101 mmol/L (98-107) 04/27/22 05:10 Carbon Dioxide 27 mmol/L (22-29) 04/27/22 05:10 Anion Gap 13.1 (5-19) 04/27/22 05:10 BUN 22 mg/dL (8-23) 04/27/22 05:10 Creatinine 1.0 mg/dL (0.5-0.9) H 04/27/22 05:10 GFR Calculation Not Reportable 04/27/22 05:10 Glucose 86 mg/dL (65-115) 04/27/22 05:10 POC Glucose 149 mg/dL (70-110) H 04/26/22 21:45 Estimat Average Glucose 105 04/27/22 05:10 Hemoglobin A1c 5.3 % (4.0-6.0) 04/27/22 05:10 Calculated Osmolality 287 mOsm/kg (285-295) 04/27/22 05:10 Calcium 9.1 mg/dL (8.5-10.5) 04/27/22 05:10 Total Bilirubin 0.5 mg/dL (0.15-1.2) 04/26/22 21:45 AST 27 U/L (0-32) 04/26/22 21:45 ALT 15 U/L (0-33) 04/26/22 21:45 Alkaline Phosphatase 62 IU/L (35-105) 04/26/22 21:45 Total Protein 7.3 g/dL (6.6-8.7) 04/26/22 21:45 Albumin 4.0 g/dL (3.5-5.2) 04/26/22 21:45 Globulin 3.3 g/dL (1.3-4.6) 04/26/22 21:45 Triglycerides 51 mg/dL (0-150) 04/27/22 05:10 Cholesterol 165 mg/dL (0-200) 04/27/22 05:10 LDL Cholesterol, Calc 99 mg/dL (50-129) 04/27/22 05:10 HDL Cholesterol 56 mg/dL (60-100) L 04/27/22 05:10 LDL/HDL Ratio 1.77 RATIO (0.00-3.22) 04/27/22 05:10 Cholesterol/HDL Ratio 2.95 mg/dL (0.0-4.40) 04/27/22 05:10 Urine Color Yellow (Yellow) 04/27/22 00:15 Urine Appearance Clear (CLEAR) 04/27/22 00:15 Urine pH 5 (5-7) 04/27/22 00:15 Ur Specific [place] 1.020 (1.005-1.030) 04/27/22 00:15 Urine Protein Neg (Negative) 04/27/22 00:15 Urine Glucose (UA) Norm (Normal) 04/27/22 00:15 Urine Ketones Negative (Negative) 04/27/22 00:15 Urine Blood Neg (Negative) 04/27/22 00:15 Urine Nitrate Negative (Negative) 04/27/22 00:15 Urine Bilirubin Neg (Negative) 04/27/22 00:15 Urine Urobilinogen Neg mg/dL (Negative) 04/27/22 00:15 Ur Leukocyte Esterase Negative (Negative) 04/27/22 00:15 Urine RBC 0-4 /hpf (0-2) H 04/27/22 00:15 Urine WBC 0-4 /hpf (0-5) H 04/27/22 00:15 Ur Squamous Epith Cells 25-40 /hpf (0-5) H 04/27/22 00:15 Amorphous Sediment Trace /hpf 04/27/22 00:15 Urine Bacteria Trace /hpf (NONE) 04/27/22 00:15 Urine Mucus 1+ /hpf 04/27/22 00:15 Urine Yeast Trace /hpf 04/27/22 00:15 Vitals Last Vital Signs Temp 98.2 F 04/27/22 09:14 Pulse 94 04/27/22 09:14 Resp 12 04/27/22 09:14 BP 115/75 04/27/22 09:14 Pulse Ox 93 04/27/22 09:14 Discharge Plan Discharge Patient Disposition: Home Condition: Stable Prescriptions: New aspirin 81 mg tablet,delayed release (DR/EC) 81 mg PO DAILY Qty: 30 3RF Lipitor 40 mg tablet 40 mg PO DAILY 30 Days Qty: 30 3RF Continued latanoprost 0.005 % drops 1 drp ophthalmic (eye) DAILY Rx Instructions: both eyes vitamin B complex [B Complex-Vitamin B12] Tablet 1 tab PO DAILY coenzyme Q10 [Co Q-10] 100 mg capsule 100 mg PO DAILY ferrous sulfate 325 mg (65 mg iron) tablet 325 mg PO DAILY omega-3 fatty acids [Fish Oil Concentrate] 1,000 mg capsule 1,000 mg PO DAILY calcium carb-mag ox-zinc sulf 334-134-5 mg tablet 1 tab PO DAILY Rx Instructions: administer with a meal vitamin E 200 unit capsule 200 unit PO DAILY ascorbic acid (vitamin C) 1,000 mg tablet 1,000 mg PO DAILY folic acid 400 mcg tablet 0.4 mg PO DAILY pyridoxine (vitamin B6) 100 mg tablet 100 mg PO DAILY potassium chloride 20 mEq tablet extended release 20 meq PO DAILY Eliquis 5 mg tablet 2.5 mg PO BID furosemide 40 mg tablet 20 mg PO DAILY carvedilol 12.5 mg tablet 12.5 mg PO BID Qty: 180 2RF Rx Instructions: must administer with a meal/food amoxicillin 500 mg Tablet 500 mg PO TID Rx Instructions: x 7 days Discharge Orders: Discharge Order (Routine); Ordered 04/27/22 Ordered By: Randell Hugo Referrals: Cadence Langley MD [Physician] - 1 week (Please call Dr. Langley's Office at [phone] on Thursday to schedule a follow up appointment for 1 week. Thank you.) Rodrigue Dillon MD [Primary Care Provider] - 1 week (Please call Dr. Dillon's Office at [phone] on Thursday to schedule a follow up appointment for 1 week. Thank you.) Patient Instructions: Aspirin (By mouth) (Reji Extra Strength, Reji Aspirin [facility],..., Enoxaparin (By injection) (Lovenox), Atorvastatin (By mouth) (Lipitor), Heart Failure (DC), Chronic Hypertension (DC), Stroke (DC), Opioid Safety Discharge Attestations Time Spent in Discharge Care*: less than 30 min Quality Metrics Clinical Quality Measures [ Cerebrovascular Accident { Contraindication to Antithrombotic: Other; Contraindication to Anticoagulation: None; anticoagulation prescribed; Contraindication to Statin: None; Statin prescribed;}] Coding Level of Care Code Acute Chg FW DC note Exam Detailed Diagnoses CVA (cerebral vascular accident) I63.9 Broken tooth S02.5XXA Atrial fibrillation I48.19 Atrial fibrillation type: persistent (not longstanding)
[2022-04-27 12:06] VITALS: BP 115/75; PULSE 94; RESP 12; TEMP 36.8; O2SAT 93
--- NOTE | 2022-04-27 23:55 | USCV_ITS ---
Joy Sewell Age: 81 Gender: F : 1940 Exam Date: 04/27/2022 06:49 Ordering Phys: Albin Nogueira MD Technologist: Joel Langston Exam Location: [facility] [place] Indication: ? cva BP: 110 / 67 HR: 81 Rhythm: Sinus Technical Quality: Good MEASUREMENTS (Male / Female) Normal Values 2D ECHO LV Diastolic Diameter PLAX 3.1 cm 4.2 - 5.9 / 3.9 - 5.3 cm LV Systolic Diameter PLAX 2.3 cm IVS Diastolic Thickness 0.4 cm 0.6 - 1.0 / 0.6 - 0.9 cm IVS Systolic Thickness 1.1 cm LVPW Diastolic Thickness 3.2 cm 0.6 - 1.0 / 0.6 - 0.9 cm LVPW Systolic Thickness 1.2 cm LVOT Diameter 2.0 cm LV Ejection Fraction 2D Teich 80.2 % LV Ejection Fraction MOD 2C 64.3 % LV Ejection Fraction 2C AL 63.6 % LA Diameter 5.5 cm Aorta at Sinotubular Diameter 3.0 cm IVC Diameter 2.1 cm M-MODE Aortic Annulus Diameter 3.5 cm LA Ao Ratio MM 1.5 MV E Point Septal Separation 0.6 cm DOPPLER AV Peak Velocity 92.7 cm/s LVOT Peak Velocity 52.0 cm/s AV Area Cont Eq vti 2.2 cm squared AV Area Cont Eq pk 1.8 cm squared MV Area PHT 5.0 cm squared Mitral E to A Ratio 2.1 MV E' Velocity 82.0 cm/s Mitral E to MV E' Ratio 14.6 Mitral E to LV E' Lateral Ratio 14.2 Mitral E to LV E' Septal Ratio 15.0 TR Peak Velocity 309.7 cm/s TR Peak Gradient 38.4 mmHg TV Peak E Velocity 102.0 cm/s Right Atrial Pressure 3.0 mmHg Pulmonary Artery Systolic Pressu 41.4 mmHg PV Peak Velocity 104.0 cm/s FINDINGS Left Ventricle Normal left ventricular size and systolic function, EF 69 %. No regional wall motion abnormalities. Right Ventricle The right ventricle is normal in size and function. Right Atrium Moderately increased right atrial size. Left Atrium Markedly dilated left atrium Mitral Valve Severe bileaflet mitral valve prolapse-grade 3.moderate mitral valve regurgitation. Aortic Valve Thickened aortic valve. Trace aortic valve regurgitation. Tricuspid Valve [id number] tricuspid valve regurgitation. Thickened tricuspid valve. Estimated pulmonary artery peak systolic pressure 42 mmHg Pulmonic Valve Mild pulmonary valve regurgitation. Pericardium Trivial pericardial effusion. Aorta Normal aortic annulus size. IVC Dilated IVC with normal respiratory variation. CONCLUSIONS Normal left ventricular size and systolic function, EF 69 %. No regional wall motion abnormalities. Markedly dilated left atrium. Moderately increased right atrial size. Normal RV size and ejection fraction. Severe bileaflet mitral valve prolapse-grade 3. Moderate mitral valve regurgitation. Thickened aortic valve. Trace aortic valve regurgitation. [id number]-vmvuumat tricuspid valve regurgitation. Thickened tricuspid valve. Estimated pulmonary artery peak systolic pressure 42 mmHg There is no pericardial effusion. There are no intracardiac masses. The Doppler studies are somewhat suboptimal. No similar previous studies are available for comparison Dr Soraya Chadwick MD [facility] (Electronically Signed) Final Date: 27 April 2022 10:09 S
== END 2022-04-27 12:30 | disposition home or self-care (01) | DRG 65 ==
LOC: ER 21:52 → MEDSURG 22:23
PROVIDERS: Admitting Provider Internal Medicine; Emergency Provider Emergency Medicine; PCP Family Medicine; Visit Provider Internal Medicine
DX: I63.9 Cerebral infarction, unspecified (principal); G81.94 Hemiplegia, unspecified affecting left nondominant side; I48.19 Other persistent atrial fibrillation; N17.9 Acute kidney failure, unspecified; H53.122 Transient visual loss, left eye; R27.0 Ataxia, unspecified; R29.700 NIHSS score 0; I34.0 Nonrheumatic mitral (valve) insufficiency; I50.9 Heart failure, unspecified; R00.1 Bradycardia, unspecified; S02.5XXA Fracture of tooth (traumatic), initial encounter for closed fracture; X58.XXXA Exposure to other specified factors, initial encounter; T45.516A Underdosing of anticoagulants, initial encounter; F40.240 Claustrophobia; R54 Age-related physical debility; Z91.128 Patient's intentional underdosing of medication regimen for other reason; Z79.01 Long term (current) use of anticoagulants; Z82.49 Family history of ischemic heart disease and other diseases of the circulatory system
CPT/HCPCS: 36415; 36416; 70450; 80048; 80053; 80061; 81001; 82962; 83036; 85025; 85610; 85730; 92523; 92610; 93005; 93306; 93880; 96372; 97116; 97161; 97165; 99285; C8929; J1650

== ENCOUNTER → 2022-05-05 11:20 | Outpatient (BNVA) | payer MEDICARE, MEDICAID, SELFPAY | PROVIDERS: PCP Family Medicine; Visit Provider Specialist | DX: Z86.73 Personal history of transient ischemic attack (TIA), and cerebral infarction without residual deficits (principal); I48.91 Unspecified atrial fibrillation | CPT/HCPCS: 99204; 99205 ==

== ENCOUNTER → 2022-05-08 10:58 | Outpatient (BNVA) | payer MEDICARE, MEDICAID, SELFPAY | PROVIDERS: PCP Family Medicine; Visit Provider Nurse Practitioner Family | DX: I63.81 Other cerebral infarction due to occlusion or stenosis of small artery (principal); I48.91 Unspecified atrial fibrillation | CPT/HCPCS: 99213 ==

== ENCOUNTER → 2022-09-03 14:27 | Outpatient (BNVA) | payer MEDICARE, MEDICAID, SELFPAY | PROVIDERS: PCP Family Medicine; Visit Provider Internal Medicine Cardiovascular Disease | DX: I48.91 Unspecified atrial fibrillation (principal); Z79.01 Long term (current) use of anticoagulants; I11.0 Hypertensive heart disease with heart failure; I50.9 Heart failure, unspecified; Z86.73 Personal history of transient ischemic attack (TIA), and cerebral infarction without residual deficits | CPT/HCPCS: 99214 ==

== ENCOUNTER → 2023-03-04 14:11 | Outpatient (BNVA) | payer MEDICARE, MEDICAID, SELFPAY | PROVIDERS: PCP Family Medicine; Visit Provider Internal Medicine Cardiovascular Disease | DX: I48.91 Unspecified atrial fibrillation (principal); I11.0 Hypertensive heart disease with heart failure; I50.9 Heart failure, unspecified; R54 Age-related physical debility; Z86.73 Personal history of transient ischemic attack (TIA), and cerebral infarction without residual deficits; Z79.01 Long term (current) use of anticoagulants | CPT/HCPCS: 99214 ==

== ENCOUNTER → 2024-01-26 10:18 | Outpatient (BNVA) | payer MEDICARE, MEDICAID, SELFPAY | PROVIDERS: PCP Family Medicine; Referring Provider Family Medicine; Visit Provider Nurse Practitioner Family | DX: I11.0 Hypertensive heart disease with heart failure (principal); I50.9 Heart failure, unspecified; I48.0 Paroxysmal atrial fibrillation; Z79.01 Long term (current) use of anticoagulants | CPT/HCPCS: 99214 ==

== ENCOUNTER → 2024-07-08 11:44 | Outpatient (BNVA) | payer MEDICARE, MEDICAID, SELFPAY | PROVIDERS: PCP Family Medicine; Visit Provider Internal Medicine Cardiovascular Disease | DX: I48.0 Paroxysmal atrial fibrillation (principal); Z79.01 Long term (current) use of anticoagulants; I11.0 Hypertensive heart disease with heart failure; I50.9 Heart failure, unspecified | CPT/HCPCS: 99213 ==

== ENCOUNTER 2025-01-16 17:11 | Outpatient (CLI) | payer MEDICARE, MEDICAID, SELFPAY ==
--- NOTE | 2025-01-16 17:23 | CT_ITS ---
WS: [id number] CT chest w con* [id number] HISTORY: ABNORMAL XRAY TECHNIQUE: Axial imaging performed through the thorax. Coronal and sagittal reformats are submitted. All CT scans at [facility] use at least one of these dose optimization techniques: automated exposure control; mA and/or kV adjustment per patient size (includes targeted exams where dose is matched to clinical indication); or iterative reconstruction. CONTRAST: Omnipaque 350; 100 mL IV. DLP: 187.01 mGy.cm COMPARISON: None available. Lungs and central airway: Decreased lung volumes. No mass, nodule or pneumonia. Mild atelectasis RIGHT lower lobe. Pleura: Small layering simple RIGHT pleural effusion. Heart and pericardium: Massive cardiomegaly. Severe biatrial enlargement. Ventricles are not as dilated. Moderate to large pericardial effusion. RIGHT ventricle is not collapsed. Mediastinum and talib: No mediastinal or hilar adenopathy. Vessels: Markedly ectatic thoracic aorta with calcification. Great vessels arise normally from the arch. Size of the aorta appears appropriate. Dilated pulmonary artery. No pulmonary embolism. There is mild tricuspid regurgitation into the hepatic veins. Chest wall and lower neck: No soft tissue masses. Upper abdomen: Cortical atrophy and thinning upper pole of each kidney. Tricuspid regurgitation into the hepatic veins. Adrenal glands are not well visualized. 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 Osteopenia. CT/CT chest w con* [id number] IMPRESSION: 1. Massively enlarged heart. Most significant is severe biatrial enlargement. 2. Moderate to large pericardial effusion. 3. Small RIGHT pleural effusion. 4. Ectatic tortuous thoracic aorta with no aneurysm. 5. Enlarged pulmonary artery with tricuspid regurgitation into the hepatic vei ns. 6. Cortical thinning upper pole of each kidney.
[2025-01-16 17:50] LABS: Blood Urea Nitrogen 25 mg/dL (8-23)
[2025-01-16] MEDS: iohexol 350 mg/mL 500 mL Btl (per mL) IV (18:06)
== END 2025-01-16 17:12 | disposition home or self-care (01) ==
LOC: RAD 17:16
PROVIDERS: PCP Family Medicine; Visit Provider Family Medicine
DX: R93.89 Abnormal findings on diagnostic imaging of other specified body structures (principal); J90 Pleural effusion, not elsewhere classified; I31.39 Other pericardial effusion (noninflammatory); I77.810 Thoracic aortic ectasia; I07.1 Rheumatic tricuspid insufficiency; R93.421 Abnormal radiologic findings on diagnostic imaging of right kidney; R93.422 Abnormal radiologic findings on diagnostic imaging of left kidney; R93.1 Abnormal findings on diagnostic imaging of heart and coronary circulation; J98.4 Other disorders of lung; J98.11 Atelectasis; I70.0 Atherosclerosis of aorta; I28.1 Aneurysm of pulmonary artery; M41.86 Other forms of scoliosis, lumbar region; M41.84 Other forms of scoliosis, thoracic region; M85.80 Other specified disorders of bone density and structure, unspecified site
CPT/HCPCS: 71260; 82565; 84520

== ENCOUNTER 2025-01-19 16:20 | Inpatient (IN) | payer MEDICARE, MEDICAID, SELFPAY ==
[2025-01-19 16:28] VITALS: BP 110/69; PULSE 83; RESP 15; TEMP 36.4; O2SAT 95; BMI 16.9
--- NOTE | 2025-01-19 16:33 | XRR_ITS ---
PROCEDURE INFORMATION: Exam: XR Chest Exam date and time: 01/19/2025 6:55 PM Age: 84 years old Clinical indication: Dyspnea; Additional info: Shortness of breath TECHNIQUE: Imaging protocol: Radiologic exam of the chest. Views: 1 view. COMPARISON: CT chest w con* [id number] 01/16/2025 6:07 PM FINDINGS: Lungs: 2.4 cm rounded pneumonia right mid lung field which appears to be possible peripheral scarring/atelectasis and loculated pleural fluid on comparison CT scan. Stable right calcified hilar nodes and/or mediastinal nodes and/or lung nodules consistent with old granulomatous disease. Pleural spaces: See Lungs finding. Heart/Mediastinum: Moderate to severe globular cardiomegaly consistent with 4-chamber enlargment and/or pericardial effusion. Large left atrium and right atrium on CT scan.. Severe calcification in the mitral valve and/or mitral valve annulus. Vasculature: Calcification of the thoracic aorta and/or great vessels consistent with atherosclerotic vessel disease. Bones/joints: Idiopathic S-shaped scoliosis. XR/XR chest 1V portable [id number] IMPRESSION: 1. Moderate to severe globular cardiomegaly consistent with 4-chamber enlargment and/or pericardial effusion. Comparison CT shows large right atrium, left atrium and moderate pericardial fluid. 2. 2.4 cm rounded pneumonia right mid lung field which appears to be possible peripheral scarring/atelectasis and loculated pleural fluid on comparison CT scan.
--- NOTE | 2025-01-19 17:11 | ECG_ITS ---
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 Measurements Intervals [place] Rate: 83 P: 0 MI: 0 QRS: 212 QRSD: 82 T: 131 QT: 378 QTc: 447 Interpretive Statements ATRIAL FIBRILLATION RIGHT AXIS DEVIATION [QRS AXIS > 100] LOW QRS VOLTAGE IN EXTREMITY LEADS [QRS DEFLECTION < 0.5 mV IN LIMB LEADS] POSSIBLE RIGHT VENTRICULAR CONDUCTION DELAY [RSR (QR) IN V1/V2] PROBABLE ANTEROSEPTAL MYOCARDIAL INFARCTION , OF INDETERMINATE AGE [35 ms Q WAVE IN V1-V4] Compared to ECG 04/26/2022 21:45:42 Right-axis deviation now present Low QRS voltage now present Myocardial infarct finding now present ST (T wave) deviation no longer present Electronically Signed On 01-20-2025 08:42:52 CDT by Soraya Chadwick M.D. [email or web address]
[2025-01-19 17:21] LABS: ABG PCO2 34.7 mmHg (35-45); ABG PH Result 7.43 (7.35-7.45); Alveolar-Arterial Oxygen Gradi 4.6 mmHg (5-10); Arterial Blood Gas Hematocrit 40.6 % (37-47); Base Excess ABG -0.9 mmol/L (-2.0-2.0); Blood Gas Allen Test Pos; Blood Gas Sample Site Radial, left; Blood Gas Sample Type Arterial; Carboxyhemoglobin 1.3 %THgb (0.4-20.1); HGB O2 Sat 92.7 % (95-100); Ionized Calcium Level - ABG 1.2 mmol/L (1.1-1.4); Methemoglobin 0.8 % (0.4-1.5); Oxygen Device ROOM AIR; Oxygen Saturation ABG 94.6; PO2 ABG 69.6 mmHg (80.0-100.0); PO2 FiO2 Ratio Arterial Blood 331; Potassium Level - ABG 4.6 mmol/L (3.5-5.0); Total Hemoglobin 13.2 g/dL (12-16)
--- NOTE | 2025-01-19 17:29 | W.ED.AMS ---
Documented by User: Fletcher Chiang DO 01/20/25 06:11 HPI - Altered Mental Status General: Chief Complaint: Altered Mental Status Stated Complaint: Low o2, sob, Ams Time Seen by Provider: 01/19/25 17:28 History of Present Illness: 84-year-old female presents to the emergency room with family. They are concerned about her memory and she has had some hallucinations that she relates to me that she she has episodes where she sees things that are not there she is aware of it. She relates an episode a week ago where she woke up from sleep she states the table was hanging in the window of furniture and then rearranged but then it went back to normal. She seems to acknowledge that it is not actual events that she is seeing. She relates it happens more often and family confirms this. No fever no vomiting or diarrhea patient relates she has frequent stools but that is been chronic. She did have some falls at home from her description sound like there were ground-level mechanical falls. She does have a history of atrial fibrillation and is on Eliquis. There is been some adjustments to her Lasix recently. Patient had chest CT earlier this week shows significant cardiomegaly with small pleural cardial effusion. She has severe mitral valve prolapse on echocardiogram done in April 2022. No chest pain no abdominal pain no dysuria urgency or frequency. Family at the bedside patient. Gives primary history family adds a few minor details but otherwise agrees that she does very well conveying her history. Related Data Home Medications ?Medication ?Instructions ?Recorded ?Confirmed ascorbic acid (vitamin C) 1,000 mg 1,000 mg PO DAILY 08/26/21 01/20/25 tablet calcium 334 mg 1 tab PO DAILY 08/26/21 01/20/25 (carbonate)-magnesium 134 mg-zinc 5 mg (sulfate) tablet coenzyme Q10 100 mg capsule (Co 100 mg PO DAILY 08/26/21 01/20/25 Q-10) folic acid 400 mcg tablet 0.4 mg PO DAILY 08/26/21 01/20/25 latanoprost 0.005 % eye drops 1 drp ophthalmic (eye) DAILY 08/26/21 01/20/25 omega-3 fatty acids 1,000 mg 1,000 mg PO DAILY 08/26/21 01/20/25 capsule (Fish Oil Concentrate) pyridoxine (vitamin B6) 100 mg 100 mg PO DAILY 08/26/21 01/20/25 tablet vitamin B complex (B 1 tab PO DAILY 08/26/21 01/20/25 Complex-Vitamin B12 tablet) vitamin E 200 unit capsule 200 unit PO DAILY 08/26/21 01/20/25 omeprazole 40 mg capsule,delayed 40 mg PO DAILY 07/08/24 01/20/25 release atorvastatin 10 mg tablet 10 mg PO QPM 01/20/25 01/20/25 cefuroxime axetil 250 mg tablet 250 mg PO BID 01/20/25 01/20/25 dicyclomine 10 mg capsule 10 mg PO TID Bloating 01/20/25 01/20/25 furosemide 40 mg tablet 40 mg PO DAILY 01/20/25 01/20/25 Previous Rx's ?Medication ?Instructions ?Recorded apixaban 2.5 mg tablet 2.5 mg PO BID #180 tabs 03/04/23 potassium chloride 20 mEq 20 meq PO DAILY #90 tabs 03/04/23 tablet,extended release carvedilol 12.5 mg tablet 12.5 mg PO BID #180 tabs 09/07/24 Allergies Allergy/AdvReac Type Severity Reaction Status Date / Time aspirin Allergy Unknown Unknown Verified 07/08/24 11:55 pseudoephedrine (From Allergy Unknown Unknown Verified 07/08/24 11:55 Sudafed) nitrofurantoin (From AdvReac Mild Abdominal Verified 07/08/24 11:55 Macrobid) Pain Review of Systems Const: Denies: fever(s) or chills Card: Denies: chest pain Resp: Denies: dyspnea GI: Denies: abdominal pain : Denies: dysuria, urinary frequency or urinary urgency Musc: Denies: neck pain or back pain Skin/Breast: Denies: rash PFSH ED PFSH: Medical History Broken tooth CVA (cerebral vascular accident) Dizziness CHF (congestive heart failure) Atrial fibrillation Surgical History S/P coronary angiogram Family History Mother CAD (coronary artery disease) Hypertension Father CAD (coronary artery disease) Hypertension Sister Diabetes Hypertension Social History Smoking and tobacco/nicotine status: unknown if used tobacco/nicotine Alcohol intake: never Substance/Drug Use: never Lives independently: Yes Household members: spouse Marital status: Physical Exam Const: GENERAL APPEARANCE: cooperative HENMT: COMMON NORMALS: normocephalic, atraumatic and hearing grossly normal bilaterally HEAD & SCALP: normocephalic and atraumatic Resp: COMMON NORMALS: normal respiratory effort, No retractions, No use of accessory muscles and clear to auscultation bilaterally AUSCULTATION: clear to auscultation bilaterally Cardio: COMMON NORMALS: regular rate, regular rhythm and No murmurs present (Cardio) RATE: regular rate RHYTHM: regular rhythm GI: COMMON NORMALS: Soft to palpation and No hepatosplenomegaly present AUSCULTATION: Yes normoactive bowel sounds PALPATION: Yes Soft to palpation, No Tenderness to palpation present (GI), No Guarding due to palpation present (GI) and Yes No hepatosplenomegaly present Extremity: COMMON NORMALS: normal to inspection, capillary refill normal, no clubbing, cyanosis or edema, no calf tenderness and no pedal edema Skin: COMMON NORMALS: no rashes or lesions noted GENERAL SKIN EXAM: no rashes or lesions noted Course Vital Signs: Vital signs: Vital Signs Temperature 97.7 F 01/20/25 04:34 Pulse Rate 84 01/20/25 04:34 Respiratory Rate 17 01/20/25 04:34 Blood Pressure 116/72 01/20/25 04:34 Pulse Oximetry 93 01/20/25 04:34 Oxygen Delivery Me thod Room Air 01/20/25 00:57 Oxygen Flow Rate 2 01/20/25 00:09 MDM - Altered Mental Status Medical Decision Making Care signed out to Dr. Kimble at change of shift. See final notes for diagnosis and disposition. Lab Data 01/19/25 17:38 01/19/25 17:38 Radiology Impressions Chest X-Ray 01/19/25 16:33 IMPRESSION: 1. Moderate to severe globular cardiomegaly consistent with 4-chamber enlargment and/or pericardial effusion. Comparison CT shows large right atrium, left atrium and moderate pericardial fluid. 2. 2.4 cm rounded pneumonia right mid lung field which appears to be possible peripheral scarring/atelectasis and loculated pleural fluid on comparison CT scan. Head CT 01/19/25 17:49 IMPRESSION: No acute intracranial abnormality. Laboratory Results WBC 4.89 10^3/uL (3.29-11.43) 01/19/25 17: RBC 4.12 10^6/uL (3.85-5.65) 01/19/25 17: Hgb 12.90 g/dL (11.27-16.99) 01/19/25: Hct 41.2 % (36-47) 01/19/25 17: MCV 100.0 fl (85-98) H 01/19/25: MCH 31.3 pg (27-33) 01/19/25: MCHC 31.3 g/dL (30-55) 01/19/25: RDW 14.7 % (12.1-15.1) 01/19/25: Plt Count 145 10^3/cmm (157-399) L 01/19/25: MPV 10.2 fL (7.4-10.4) 01/19/25: Neut % (Auto) 76.2 % 01/19/25: Lymph % (Auto) 10.6 % 01/19/25: [place] % (Auto) 10.6 % 01/19/25 17: Eos % (Auto) 1.8 % 01/19/25: Baso % (Auto) 0.4 % 01/19/25: Neut # (Auto) 3.72 10^3/uL (1.8-7.7) 01/19/25: Lymph # (Auto) 0.5 10^3/uL (0.8-4.8) L 01/19/25: [place] # (Auto) 0.5 10^3/uL (0.2-0.9) 01/19/25: Eos # (Auto) 0.1 10^3/uL (0.0-0.8) 01/19/25: Baso # (Auto) 0.0 10^3/uL (0.0-0.1) 01/19/25: Nucleated RBC % (auto) 0 % 01/19/25 17:38 Nucleated RBCs # 0.0 /100WBC 01/19/25 17:38 Specimen Type Arterial 01/19/25 17:10 Sample Site Radial, left 01/19/25 17:10 ABG pH 7.43 (7.35-7.45) 01/19/25 17:10 ABG pCO2 34.7 mmHg (35-45) L 01/19/25 17:10 ABG pO2 69.6 mmHg (80.0-100.0) L 01/19/25 17:10 ABG PO2/FiO2 Ratio 331 01/19/25 17:10 ABG HCO3 23.0 mmol/L (22-26) 01/19/25 17:10 ABG O2 Saturation 94.6 01/19/25 17:10 ABG Base Excess -0.9 mmol/L (-2.0-2.0) 01/19/25 17:10 Deny Test Pos 01/19/25 17:10 A-a O2 Gradient 4.6 mmHg (5-10) L 01/19/25 17:10 Hematocrit 40.6 % (37-47) 01/19/25 17:10 Hgb O2 Saturation 92.7 % (95-100) L 01/19/25 17:10 Carboxyhemoglobin 1.3 %THgb (0.4-20.1) 01/19/25 17:10 Methemoglobin 0.8 % (0.4-1.5) 01/19/25 17:10 Total Hemoglobin 13.2 g/dL (12-16) 01/19/25 17:10 Sodium 143.0 mmol/L (131-143) 01/19/25 17:10 Potassium 4.6 mmol/L (3.5-5.0) 01/19/25 17:10 Glucose 101.0 mg/dL (70-115) 01/19/25 17:10 Ionized Calcium 1.2 mmol/L (1.1-1.4) 01/19/25 17:10 O2 Delivery Device Room air 01/19/25 17:10 FiO2 21.0 % 01/19/25 17:10 Leather Case Finisher ID [email or web address] 01/19/25 17:10 Sodium 143 mmol/L (136-145) 01/19/25 17:38 Potassium 5.0 mmol/L (3.5-5.1) 01/19/25 17:38 Chloride 107 mmol/L (98-107) 01/19/25 17:38 Carbon Dioxide 25 mmol/L (22-29) 01/19/25 17:38 Anion Gap 16.0 (5-19) 01/19/25 17:38 BUN 39 mg/dL (8-23) H 01/19/25 17:38 Creatinine 2.7 mg/dL (0.5-0.9) H 01/19/25 17:38 GFR Calculation Not Reportable 01/19/25 17:38 Glucose 97 mg/dL (65-115) 01/19/25 17:38 Calculated Osmolality 305 mOsm/kg (285-295) H 01/19/25 17:38 Lactic Acid 1.3 mmol/L (0.5-2.2) 01/19/25 17:38 Calcium 8.7 mg/dL (8.5-10.5) 01/19/25 17: Total Bilirubin 1.0 mg/dL (0.15-1.2) 01/19/25 17:38 AST 29 U/L (0-32) 01/19/25 17:38 ALT 26 U/L (0-33) 01/19/25 17:38 Alkaline Phosphatase 60 U/L (35-105) 01/19/25 17:38 Troponin T Baseline 59 ng/L (0-10) H 01/19/25 17:38 Troponin T 120 Minute 55.85 ng/L (0-10) H 01/19/25 19:27 Delta Troponin T -3.15 ABS# (0-10) L 01/19/25 19:27 C-Reactive Protein 3.0 mg/L (0.0-4.9) 01/19/25 17:38 NT-Pro-B Natriuret Pep 05169 pg/mL (0-450) H 01/19/25 17:38 Total Protein 6.2 g/dL (6.6-8.7) L 01/19/25 17:38 Albumin 3.8 g/dL (3.5-5.2) 01/19/25 17: Globulin 2.4 g/dL (1.3-4.6) 01/19/25 17:38 Procalcitonin 0.17 ng/mL (0-0.5) 01/19/25 19:27 TSH 7.11 uIU/mL (0.27-4.20) H 01/19/25 19:27 Urine Color Yellow (Yellow) 01/19/25 18:09 Urine Appearance Clear (CLEAR) 01/19/25 18:09 Urine pH 5.0 (5-7) 01/19/25 18:09 Ur Specific [place] 1.017 (1.005-1.030) 01/19/25 18:09 Urine Protein Trace (Negative) A 01/19/25 18:09 Urine Glucose (UA) Negative (Normal) 01/19/25 18:09 Urine Ketones Negative (Negative) 01/19/25 18:09 Urine Blood Negative (Negative) 01/19/25 18:09 Urine Nitrate Negative (Negative) 01/19/25 18:09 Urine Bilirubin Negative (Negative) 01/19/25 18:09 Urine Urobilinogen 0.2 mg/dL (Negative) 01/19/25 18:09 Ur Leukocyte Esterase Negative (Negative) 01/19/25 18:09 Urine RBC 3-5 /hpf (0-2) 01/19/25 18:09 Urine WBC 0-5 /hpf (0-5) 01/19/25 18:09 Ur Squamous Epith Cells 6-10 /hpf (0-5) 01/19/25 18:09 Amorphous Sediment Not Reportable 01/19/25 18:09 Urine Bacteria 1+ /hpf (NONE) H 01/19/25 18:09 Hyaline Casts 18.61 /lpf 01/19/25 18:09 Influenza A (PCR) Negative (Negative) 01/19/25 17:15 Influenza Type B (PCR) Negative (Negative) 01/19/25 17:15 RSV (PCR) Negative (Negative) 01/19/25 17:15 SARS-CoV-2 (PCR) Negative (Negative) 01/19/25 17:15 Discharge Plan Discharge Patient Disposition: Admitted As Inpatient Admit Provider: Vamshi Rouse Clinical Impression: ISHA (acute kidney injury), Acute metabolic encephalopathy Condition: Stable Sign Out Sign Out Data: Patient Sign Out occurred on 01/19/25 at 18:47. Patient's care was discussed, and care was transferred from Fletcher Chiang DO to Wayne Kimble MD. Coding Level of Care Code ED Concrete Pipe Maker for Chg Fwd Documented by User: Wayne Kimble MD 01/19/25 22:24 HPI - Altered Mental Status General: Chief Complaint: Altered Mental Status Stated Complaint: Low o2, sob, Ams Time Seen by Provider: 01/19/25 17:28 Related Data Home Medications ?Medication ?Instructions ?Recorded ?Confirmed ascorbic acid (vitamin C) 1,000 mg 1,000 mg PO DAILY 08/26/21 01/20/25 tablet calcium 334 mg 1 tab PO DAILY 08/26/21 01/20/25 (carbonate)-magnesium 134 mg-zinc 5 mg (sulfate) tablet coenzyme Q10 100 mg capsule (Co 100 mg PO DAILY 08/26/21 01/20/25 Q-10) folic acid 400 mcg tablet 0.4 mg PO DAILY 08/26/21 01/20/25 latanoprost 0.005 % eye drops 1 drp ophthalmic (eye) DAILY 08/26/21 01/20/25 omega-3 fatty acids 1,000 mg 1,000 mg PO DAILY 08/26/21 01/20/25 capsule (Fish Oil Concentrate) pyridoxine (vitamin B6) 100 mg 100 mg PO DAILY 08/26/21 01/20/25 tablet vitamin B complex (B 1 tab PO DAILY 08/26/21 01/20/25 Complex-Vitamin B12 tablet) vitamin E 200 unit capsule 200 unit PO DAILY 08/26/21 01/20/25 omeprazole 40 mg capsule,delayed 40 mg PO DAILY 07/08/24 01/20/25 release atorvastatin 10 mg tablet 10 mg PO QPM 01/20/25 01/20/25 cefuroxime axetil 250 mg tablet 250 mg PO BID 01/20/25 01/20/25 dicyclomine 10 mg capsule 10 mg PO TID Bloating 01/20/25 01/20/25 furosemide 40 mg tablet 40 mg PO DAILY 01/20/25 01/20/25 Previous Rx's ?Medication ?Instructions ?Recorded apixaban 2.5 mg tablet 2.5 mg PO BID #180 tabs 03/04/23 potassium chloride 20 mEq 20 meq PO DAILY #90 tabs 03/04/23 tablet,extended release carvedilol 12.5 mg tablet 12.5 mg PO BID #180 tabs 09/07/24 Allergies Allergy/AdvReac Type Severity Reaction Status Date / Time aspirin Allergy Unknown Unknown Verified 07/08/24 11:55 pseudoephedrine (From Allergy Unknown Unknown Verified 07/08/24 11:55 Sudafed) nitrofurantoin (From AdvReac Mild Abdominal Verified 07/08/24 11:55 Macrobid) Pain PFSH ED PFSH: Medical History Broken tooth CVA (cerebral vascular accident) Dizziness CHF (congestive heart failure) Atrial fibrillation Surgical History S/P coronary angiogram Family History Mother CAD (coronary artery disease) Hypertension Father CAD (coronary artery disease) Hypertension Sister Diabetes Hypertension Social History Smoking and tobacco/nicotine status: unknown if used tobacco/nicotine Alcohol intake: never Substance/Drug Use: never Lives independently: Yes Household members: spouse Marital status: Course Vital Signs: Vital signs: Vital Signs Temperature 97.7 F 01/20/25 04:34 Pulse Rate 84 01/20/25 04:34 Respiratory Rate 17 01/20/25 04:34 Blood Pressure 116/72 01/20/25 04:34 Pulse Oximetry 93 01/20/25 04:34 Oxygen Delivery Me thod Room Air 01/20/25 00:57 Oxygen Flow Rate 2 01/20/25 00:09 MDM - Altered Mental Status Medical Decision Making Care signed out to Dr. Kimble at change of shift. See final notes for diagnosis and disposition. In summary, patient is a generally well-appearing 84-year-old female from home seen for hallucinations. Family states that she has a lot of visual and auditory hallucinations which occur usually when she first wakes up but then resolve. She has never done this before. CT brain shows nothing acute. Labs show ISHA with increase of creatinine from 1-2.7. She was given a liter bolus of saline here in the emergency department and will be admitted to the hospital service for further correction of ISHA which I suspect is causing metabolic encephalopathy. Patient and family are agreeable to the plan. Lab Data 01/19/25 17:38 01/19/25 17:38 Radiology Impressions Chest X-Ray 01/19/25 16:33 IMPRESSION: 1. Moderate to severe globular cardiomegaly consistent with 4-chamber enlargment and/or pericardial effusion. Comparison CT shows large right atrium, left atrium and moderate pericardial fluid. 2. 2.4 cm rounded pneumonia right mid lung field which appears to be possible peripheral scarring/atelectasis and loculated pleural fluid on comparison CT scan. Head CT 01/19/25 17:49 IMPRESSION: No acute intracranial abnormality. Laboratory Results WBC 4.89 10^3/uL (3.29-11.43) 01/19/25 17:38 RBC 4.12 10^6/uL (3.85-5.65) 01/19/25 17:38 Hgb 12.90 g/dL (11.27-16.99) 01/19/25 17:38 Hct 41.2 % (36-47) 01/19/25 17:38 MCV 100.0 fl (85-98) H 01/19/25 17:38 MCH 31.3 pg (27-33) 01/19/25 17:38 MCHC 31.3 g/dL (30-55) 01/19/25 17:38 RDW 14.7 % (12.1-15.1) 01/19/25 17:38 Plt Count 145 10^3/cmm (157-399) L 01/19/25 17:38 MPV 10.2 fL (7.4-10.4) 01/19/25 17:38 Neut % (Auto) 76.2 % 01/19/25 17: Lymph % (Auto) 10.6 % 01/19/25 17:38 [place] % (Auto) 10.6 % 01/19/25 17:38 Eos % (Auto) 1.8 % 01/19/25 17: Baso % (Auto) 0.4 % 01/19/25 17: Neut # (Auto) 3.72 10^3/uL (1.8-7.7) 01/19/25 17:38 Lymph # (Auto) 0.5 10^3/uL (0.8-4.8) L 01/19/25 17:38 [place] # (Auto) 0.5 10^3/uL (0.2-0.9) 01/19/25 17:38 Eos # (Auto) 0.1 10^3/uL (0.0-0.8) 01/19/25: Baso # (Auto) 0.0 10^3/uL (0.0-0.1) 01/19/25: Nucleated RBC % (auto) 0 % 01/19/25: Nucleated RBCs # 0.0 /100WBC 01/19/25 17:38 Specimen Type Arterial 01/19/25 17:10 Sample Site Radial, left 01/19/25 17:10 ABG pH 7.43 (7.35-7.45) 01/19/25 17:10 ABG pCO2 34.7 mmHg (35-45) L 01/19/25 17:10 ABG pO2 69.6 mmHg (80.0-100.0) L 01/19/25 17:10 ABG PO2/FiO2 Ratio 331 01/19/25 17:10 ABG HCO3 23.0 mmol/L (22-26) 01/19/25 17:10 ABG O2 Saturation 94.6 01/19/25 17:10 ABG Base Excess -0.9 mmol/L (-2.0-2.0) 01/19/25 17:10 Deny Test Pos 01/19/25 17:10 A-a O2 Gradient 4.6 mmHg (5-10) L 01/19/25 17:10 Hematocrit 40.6 % (37-47) 01/19/25 17:10 Hgb O2 Saturation 92.7 % (95-100) L 01/19/25 17:10 Carboxyhemoglobin 1.3 %THgb (0.4-20.1) 01/19/25 17:10 Methemoglobin 0.8 % (0.4-1.5) 01/19/25 17:10 Total Hemoglobin 13.2 g/dL (12-16) 01/19/25 17:10 Sodium 143.0 mmol/L (131-143) 01/19/25 17:10 Potassium 4.6 mmol/L (3.5-5.0) 01/19/25 17:10 Glucose 101.0 mg/dL (70-115) 01/19/25 17:10 Ionized Calcium 1.2 mmol/L (1.1-1.4) 01/19/25 17:10 O2 Delivery Device Room air 01/19/25 17:10 FiO2 21.0 % 01/19/25 17:10 Leather Case Finisher ID [email or web address] 01/19/25 17:10 Sodium 143 mmol/L (136-145) 01/19/25 17:38 Potassium 5.0 mmol/L (3.5-5.1) 01/19/25 17:38 Chloride 107 mmol/L (98-107) 01/19/25 17:38 Carbon Dioxide 25 mmol/L (22-29) 01/19/25 17:38 Anion Gap 16.0 (5-19) 01/19/25 17:38 BUN 39 mg/dL (8-23) H 01/19/25 17:38 Creatinine 2.7 mg/dL (0.5-0.9) H 01/19/25 17:38 GFR Calculation Not Reportable 01/19/25 17:38 Glucose 97 mg/dL (65-115) 01/19/25 17:38 Calculated Osmolality 305 mOsm/kg (285-295) H 01/19/25 17:38 Lactic Acid 1.3 mmol/L (0.5-2.2) 01/19/25 17:38 Calcium 8.7 mg/dL (8.5-10.5) 01/19/25 17:38 Total Bilirubin 1.0 mg/dL (0.15-1.2) 01/19/25 17:38 AST 29 U/L (0-32) 01/19/25 17:38 ALT 26 U/L (0-33) 01/19/25 17:38 Alkaline Phosphatase 60 U/L (35-105) 01/19/25 17:38 Troponin T Baseline 59 ng/L (0-10) H 01/19/25 17:38 Troponin T 120 Minute 55.85 ng/L (0-10) H 01/19/25 19:27 Delta Troponin T -3.15 ABS# (0-10) L 01/19/25 19:27 C-Reactive Protein 3.0 mg/L (0.0-4.9) 01/19/25 17:38 NT-Pro-B Natriuret Pep 53169 pg/mL (0-450) H 01/19/25 17:38 Total Protein 6.2 g/dL (6.6-8.7) L 01/19/25 17: Albumin 3.8 g/dL (3.5-5.2) 01/19/25 17: Globulin 2.4 g/dL (1.3-4.6) 01/19/25 17:38 Procalcitonin 0.17 ng/mL (0-0.5) 01/19/25 19: TSH 7.11 uIU/mL (0.27-4.20) H 01/19/25 19:27 Urine Color Yellow (Yellow) 01/19/25 18:09 Urine Appearance Clear (CLEAR) 01/19/25 18:09 Urine pH 5.0 (5-7) 01/19/25 18:09 Ur Specific [place] 1.017 (1.005-1.030) 01/19/25 18:09 Urine Protein Trace (Negative) A 01/19/25 18:09 Urine Glucose (UA) Negative (Normal) 01/19/25 18:09 Urine Ketones Negative (Negative) 01/19/25 18:09 Urine Blood Negative (Negative) 01/19/25 18:09 Urine Nitrate Negative (Negative) 01/19/25 18:09 Urine Bilirubin Negative (Negative) 01/19/25 18:09 Urine Urobilinogen 0.2 mg/dL (Negative) 01/19/25 18:09 Ur Leukocyte Esterase Negative (Negative) 01/19/25 18:09 Urine RBC 3-5 /hpf (0-2) 01/19/25 18:09 Urine WBC 0-5 /hpf (0-5) 01/19/25 18:09 Ur Squamous Epith Cells 6-10 /hpf (0-5) 01/19/25 18:09 Amorphous Sediment Not Reportable 01/19/25 18:09 Urine Bacteria 1+ /hpf (NONE) H 01/19/25 18:09 Hyaline Casts 18.61 /lpf 01/19/25 18:09 Influenza A (PCR) Negative (Negative) 01/19/25 17:15 Influenza Type B (PCR) Negative (Negative) 01/19/25 17:15 RSV (PCR) Negative (Negative) 01/19/25 17:15 SARS-CoV-2 (PCR) Negative (Negative) 01/19/25 17:15 All radiology interpretation(s) finalized by discharge Discharge Plan Discharge Patient Disposition: Admitted As Inpatient Admit Provider: Vamshi Rouse Clinical Impression: ISHA (acute kidney injury), Acute metabolic encephalopathy Condition: Stable Sign Out Sign Out Data: Patient Sign Out occurred on 01/19/25 at 18:47. Patient's care was discussed, and care was transferred from Fletcher Chiang DO to Wayne Kimble MD. Coding Level of Care Code ED Concrete Pipe Maker for Scout Serra
--- NOTE | 2025-01-19 17:49 | CTR_ITS ---
PROCEDURE INFORMATION: Exam: CT Head Without Contrast Exam date and time: 01/19/2025 6:20 PM Age: 84 years old Clinical indication: Injury or trauma; Fall; Blunt trauma (contusions or hematomas); Consciousness not specified; Additional info: Fall, patient on anticoagulation TECHNIQUE: Imaging protocol: Computed tomography of the head without contrast. Radiation optimization: All CT scans at this facility use at least one of these dose optimization techniques: automated exposure control; mA and/or kV adjustment per patient size (includes targeted exams where dose is matched to clinical indication); or iterative reconstruction. COMPARISON: CT head wo con* [id number] 04/26/2022 9:50 PM RADIATION DOSE METRICS: Total DLP (mGy-cm): 1033.33 FINDINGS: Brain: Mild to moderate cerebral atrophy and ischemic leukoencephalopathy. Cerebral ventricles: No ventriculomegaly. Paranasal sinuses: Visualized sinuses are unremarkable. No fluid levels. Mastoid air cells: Visualized mastoid air cells are well aerated. Bones: Unremarkable. No acute fracture. Soft tissues: Unremarkable. Other findings: Moderate calcified intracranial atherosclerotic vessel disease. CT/CT head wo con* [id number] IMPRESSION: No acute intracranial abnormality.
[2025-01-19 17:50] LABS: Basophils % 0.4 %; Eosinophils # 0.1 10^3/uL (0.0-0.8); Eosinophils % 1.8 %; Hematocrit 41.2 % (36-47); Lymphocytes # 0.5 10^3/uL (0.8-4.8); Lymphocytes % 10.6 %; Mean Corpuscular HGB Conc 31.3 g/dL (30-55); Mean Corpuscular Hemoglobin 31.3 pg (27-33); Mean Platelet Volume 10.2 fL (7.4-10.4); Monocytes # 0.5 10^3/uL (0.2-0.9); Monocytes % 10.6 %; Neutrophils # 3.72 10^3/uL (1.8-7.7); Neutrophils % 76.2 %; Nucleated Red Blood Cells % 0 %; Platelet Count 145 10^3/cmm (157-399); Red Blood Count 4.12 10^6/uL (3.85-5.65); Red Cell Distribution Width 14.7 % (12.1-15.1); White Blood Count 4.89 10^3/uL (3.29-11.43)
[2025-01-19 18:04] LABS: Influenza A NEGATIVE (Negative); Influenza B NEGATIVE (Negative); Respiratory Syncytial Virus Ce NEGATIVE (Negative); SARS-CoV-2 PCR NEGATIVE (Negative)
[2025-01-19 18:11] LABS: Lactic Sepsis W/Reflex 1.3 mmol/L (0.5-2.2)
[2025-01-19 18:15] LABS: Troponin(5th) Baseline 59 ng/L (0-10)
--- NOTE | 2025-01-19 18:15 | ECG_ITS ---
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 Measurements Intervals [place] Rate: 74 P: 0 CO: 0 QRS: 147 QRSD: 83 T: 150 QT: 379 QTc: 422 Interpretive Statements ATRIAL FIBRILLATION POSSIBLE RIGHT VENTRICULAR HYPERTROPHY [SOME/ALL OF: PROMINENT R IN V1, LATE TRANSITION, RAD, MAIKEL, SSS] SEPTAL MYOCARDIAL INFARCTION , OF INDETERMINATE AGE [40+ ms Q WAVE IN V1/V2] Compared to ECG 01/19/2025 17:11:04 Right-axis deviation no longer present Myocardial infarct finding still present Electronically Signed On 01-20-2025 08:58:03 CDT by Soraya Chadwick M.D. [email or web address]
[2025-01-19 18:21] LABS: Alanine Aminotransferase 26 U/L (0-33); Albumin Level 3.8 g/dL (3.5-5.2); Alkaline Phosphatase 60 U/L (35-105); Aspartate Amino Transferase 29 U/L (0-32); Blood Urea Nitrogen 39 mg/dL (8-23); Calcium 8.7 mg/dL (8.5-10.5); Carbon Dioxide 25 mmol/L (22-29); Chloride 107 mmol/L (98-107); Creatinine Clr Calc Pharmacy 11.0815; Globulin 2.4 g/dL (1.3-4.6); Glucose 97 mg/dL (65-115); NT Pro B Type Natriuretic Pept 30188 pg/mL (0-450); Osmolality Calculated 305 mOsm/kg (285-295); Sodium 143 mmol/L (136-145); Total Protein 6.2 g/dL (6.6-8.7)
[2025-01-19 18:35] LABS: Bilirubin Urine Negative (Negative); Blood Urine Negative (Negative); Glucose Urine UA Negative (Normal); Ketones Urine Negative (Negative); Leukocyte Esterase Urine Negative (Negative); Nitrate Urine Negative (Negative); Protein Urine Trace (Negative); Specific Gravity, Urine 1.017 (1.005-1.030); Urine Appearance Clear (CLEAR); Urine Color Yellow (Yellow); Urobilinogen Urine 0.2 mg/dL (Negative)
[2025-01-19 18:41] LABS: Bacteria Urine 1+ /hpf; Hyaline Casts Urine 18.61 /lpf; WBC Urine 0-5 /hpf (0-5)
[2025-01-19 18:55] VITALS: BP 107/82; PULSE 110; RESP 14; O2SAT 92
[2025-01-19 19:09] VITALS: BP 116/79; PULSE 86; RESP 16; O2SAT 90
[2025-01-19 19:57] LABS: Troponin 5 2HR 55.85 ng/L (0-10)
[2025-01-19 20:07] LABS: Troponin 5 2HR Delta -3.15 ABS# (0-10)
[2025-01-19] MEDS: sodium chloride 0.9% 1,000 ML 999 ML IV (21:14)
[2025-01-19 21:16] VITALS: BP 111/82; PULSE 76; RESP 16; O2SAT 90
--- NOTE | 2025-01-19 21:40 | PM.HP ---
Providers/Chief Complaint Primary Care Provider: Rodrigue Dillon MD Chief Complaint: Low o2, sob, Ams History of Present Illness Joy Sewell is a 84 year old female with a past medical history of cardiomyopathy, EF of 35%, systolic CHF, atrial fibrillation on Eliquis, hypertension, history of severe mitral valve regurgitation found to not be a good candidate for mitral clip, who presents [facility] due to altered mental status. According to family members, she has been increasingly weak and fatigued recently, she has been more short of breath, no edema, no orthopnea, no paroxysmal nocturnal dyspnea, she has had a productive cough, family also reports intermittent hemoptysis at times with her cough, no fevers, no chills, according to family she has had episodes of confusion, hallucination, currently she is alert to person, to place, to time she follows commands, does report a fall, she fell on her back Review of Systems Const: Reports: fatigue and malaise; Denies: fever(s) or chills Card: Denies: chest pain Resp: Reports: dyspnea and productive cough GI: Denies: abdominal pain : Denies: flank pain Neuro: Reports: confusion; Denies: headache(s), numbness in extremities, weakness in extremities, frequent falls, vertigo or difficulty communicating thoughts Medications/Allergies Home Medications ?Medication ?Instructions ?Recorded ?Confirmed ?Last Taken ?Type ascorbic acid (vitamin C) 1,000 mg 1,000 mg PO DAILY 08/26/21 07/08/24 04/26/22 History tablet calcium 334 mg 1 tab PO DAILY 08/26/21 07/08/24 04/26/22 History (carbonate)-magnesium 134 mg-zinc 5 mg (sulfate) tablet coenzyme Q10 100 mg capsule (Co 100 mg PO DAILY 08/26/21 07/08/24 04/26/22 History Q-10) ferrous sulfate 325 mg (65 mg 325 mg PO DAILY 08/26/21 07/08/24 04/26/22 History iron) tablet folic acid 400 mcg tablet 0.4 mg PO DAILY 08/26/21 07/08/24 04/26/22 History latanoprost 0.005 % eye drops 1 drp ophthalmic (eye) DAILY 08/26/21 07/08/24 04/26/22 History omega-3 fatty acids 1,000 mg 1,000 mg PO DAILY 08/26/21 07/08/24 04/26/22 History capsule (Fish Oil Concentrate) pyridoxine (vitamin B6) 100 mg 100 mg PO DAILY 08/26/21 07/08/24 04/26/22 History tablet vitamin B complex (B 1 tab PO DAILY 08/26/21 07/08/24 04/26/22 History Complex-Vitamin B12 tablet) vitamin E 200 unit capsule 200 unit PO DAILY 08/26/21 07/08/24 04/26/22 History apixaban 2.5 mg tablet 2.5 mg PO BID #180 tabs 03/04/23 07/08/24 Unknown Rx furosemide 40 mg tablet 20 mg (1/2 x 40 mg) PO DAILY #90 03/04/23 07/08/24 Unknown Rx tabs potassium chloride 20 mEq 20 meq PO DAILY #90 tabs 03/04/23 07/08/24 Unknown Rx tablet,extended release omeprazole 40 mg capsule,delayed 40 mg PO DAILY 07/08/24 07/08/24 Unknown History release atorvastatin 10 mg tablet 10 mg PO DAILY #90 tabs 07/11/24 Unknown Rx carvedilol 12.5 mg tablet 12.5 mg PO BID #180 tabs 09/07/24 Unknown Rx Allergies Allergy/AdvReac Type Severity Reaction Status Date / Time aspirin Allergy Unknown Unknown Verified 07/08/24 11:55 pseudoephedrine (From Allergy Unknown Unknown Verified 07/08/24 11:55 Sudafed) nitrofurantoin (From AdvReac Mild Abdominal Verified 07/08/24 11:55 Macrobid) Pain PFSH Acute PFSH: Medical History Broken tooth CVA (cerebral vascular accident) Dizziness CHF (congestive heart failure) Atrial fibrillation Surgical History S/P coronary angiogram Family History Mother CAD (coronary artery disease) Hypertension Father CAD (coronary artery disease) Hypertension Sister Diabetes Hypertension Social History Smoking and tobacco/nicotine status: unknown if used tobacco/nicotine Alcohol intake: never Substance/Drug Use: never Lives independently: Yes Household members: spouse Marital status: Vitals/I&O/Wt Last Vital Signs Temp 97.6 F 01/19/25 16:28 Pulse 76 01/19/25 21:16 Resp 16 01/19/25 21:16 BP 111/82 01/19/25 21:16 Pulse Ox 90 01/19/25 21:16 O2 Del Method Room Air 01/19/25 21:16 Weight last 48 hrs Weight 42.184 kg Physical Exam Const: COMMON NORMALS: no acute distress ORIENTATION/CONSCIOUSNESS: Yes awake, Yes oriented to person and Yes oriented to place; not oriented to time HENMT: COMMON NORMALS: normocephalic HEAD & SCALP: normocephalic Eye: COMMON NORMALS: Equal, round and reactive pupils present and EOMs intact bilaterally Neck/C-Spine: COMMON NORMALS: no JVD Resp: COMMON NORMALS: normal respiratory effort, No retractions and No use of accessory muscles AUSCULTATION: crackles and wheezes Cardio: COMMON NORMALS: regular rate, regular rhythm, S1 normal heart sound present and S2 normal heart sound present RATE: regular rate RHYTHM: regular rhythm HEART SOUNDS: S1 normal heart sound present and S2 normal heart sound present GI: COMMON NORMALS: Normal to inspection, nondistended, normoactive bowel sounds present, Soft to palpation and non-tender Extremity: COMMON NORMALS: no calf tenderness and no pedal edema Neuro: COMMON NORMALS: CN's II-XII intact bilaterally and moves all extremities Psych: COMMON NORMALS: mental status grossly normal Data 01/19/25 17:38 01/19/25 17:38 Micro: Microbiology 01/19/25 17:40 Blood Culture - Preliminary Blood SPECIMEN COLLECTED 01/19/25 17:38 Blood Culture - Preliminary Blood SPECIMEN COLLECTED A&P Assessment and plan (1) Acute encephalopathy: (2) Pneumonia: (3) CHF (congestive heart failure): Qualifiers: Heart failure type: unspecified Heart failure chronicity: chronic Qualified Code(s): I50.9 - Heart failure, unspecified (4) Atrial fibrillation: Qualifiers: Atrial fibrillation type: paroxysmal Qualified Code(s): I48.0 - Paroxysmal atrial fibrillation (5) Mitral valve regurgitation due to cardiomyopathy: Plan Acute encephalopathy - Neurochecks, aspiration precautions, and a stroke scale - Likely secondary to pneumonia Pneumonia - Seen on chest x-ray 2.4 cm rounded pneumonia right middle lung field - Start Rocephin - Start azithromycin Acute kidney injury - Will stop fluids as there is risk of fluid overload - Potential contrast-induced nephropathy - Potentially cardiorenal syndrome - Monitor renal function, monitor urine output Systolic CHF exacerbation - Lasix 40 IV daily - Monitor urine output, monitor creatinine - Repeat cardiac echo Mitral valve regurg, deemed to not be a suitable candidate for mitral valve clip Bilateral pleural effusions, Lasix as above Atrial fibrillation, continue Eliquis, continue metoprolol BMI 17, evidence of moderate protein malnutrition, physical deconditioning - PT OT Patient is a DNR DNI, patient and family tells me that she has DNR paperwork Eliquis for DVT prophylaxis PDMP PDMP Reviewed: Not Reviewed Attestations Medical Necessity Statement*: Patient requires hospitalization, inpatient, greater than 2 midnights, for acute encephalopathy, systolic CHF, pneumonia Coding Level of Care Code Acute Code for [facility] Diagnoses Acute encephalopathy G93.40 Pneumonia J18.9 Chronic congestive heart failure, unspecified heart failure type I50.9 Heart failure type: unspecified Heart failure chronicity: chronic Paroxysmal atrial fibrillation I48.0 Atrial fibrillation type: paroxysmal Mitral valve regurgitation due to cardiomyopathy I34.0; I42.9
[2025-01-19 22:00] VITALS: BP 111/61; PULSE 88; RESP 16
[2025-01-19] MEDS: AZITHROMYCIN ADD-Vantage 500 MG in 0.9% NaCl ADD-Vantage 250 ML 250 MG IV (22:09)
[2025-01-19] MEDS: cefTRIAXone 1,000 mg SDV 1000 MG IVP (22:10)
[2025-01-19] MEDS: pantoprazole 40 mg SDV IVP (22:11)
[2025-01-19 22:21] LABS: Procalcitonin 0.17 ng/mL (0-0.5); Thyroid Stimulating Hormone 7.11 uIU/mL (0.27-4.20)
--- NOTE | 2025-01-19 22:54 | ECG_ITS ---
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 Measurements Intervals [place] Rate: 84 P: 0 MO: 0 QRS: 98 QRSD: 85 T: 91 QT: 387 QTc: 458 Interpretive Statements ATRIAL FIBRILLATION BORDERLINE RIGHT AXIS DEVIATION [QRS AXIS > 90] SEPTAL MYOCARDIAL INFARCTION , OF INDETERMINATE AGE [40+ ms Q WAVE IN V1/V2] Compared to ECG 01/19/2025 18:15:18 No significant changes Electronically Signed On 01-20-2025 08:55:38 CDT by Soraya Chadwick M.D. [email or web address]
[2025-01-20] VITALS (12 sets, daily range): BP systolic 95–118; BP diastolic 59–77; PULSE 61–97; RESP 15–18; TEMP 36.4–37.3; O2SAT 92–98
[2025-01-20 00:37] LABS: Troponin 5 6HR 53.35 ng/L (0-10); Troponin 5 6HR Delta -5.65 ng/L (0-12)
[2025-01-20 06:25] LABS: Basophils % 0.2 %; Eosinophils # 0.1 10^3/uL (0.0-0.8); Eosinophils % 2.4 %; Hematocrit 39.5 % (36-47); Lymphocytes # 0.4 10^3/uL (0.8-4.8); Lymphocytes % 9.7 %; Mean Corpuscular HGB Conc 31.1 g/dL (30-55); Mean Corpuscular Hemoglobin 31.5 pg (27-33); Monocytes # 0.5 10^3/uL (0.2-0.9); Monocytes % 11.7 %; Neutrophils # 3.43 10^3/uL (1.8-7.7); Neutrophils % 75.8 %; Nucleated Red Blood Cells % 0 %; Platelet Count 136 10^3/cmm (157-399); Red Blood Count 3.91 10^6/uL (3.85-5.65); Red Cell Distribution Width 14.7 % (12.1-15.1); White Blood Count 4.53 10^3/uL (3.29-11.43)
[2025-01-20 06:51] LABS: Alanine Aminotransferase 21 U/L (0-33); Albumin Level 3.2 g/dL (3.5-5.2); Alkaline Phosphatase 55 U/L (35-105); Anion Gap 16.6 (5-19); Aspartate Amino Transferase 24 U/L (0-32); Blood Urea Nitrogen 39 mg/dL (8-23); Calcium 8.2 mg/dL (8.5-10.5); Carbon Dioxide 22 mmol/L (22-29); Chloride 112 mmol/L (98-107); Creatinine Clr Calc Pharmacy 11.0815; Globulin 2.8 g/dL (1.3-4.6); Glucose 93 mg/dL (65-115); Osmolality Calculated 311 mOsm/kg (285-295); Potassium 4.6 mmol/L (3.5-5.1); Sodium 146 mmol/L (136-145); Total Bilirubin 0.6 mg/dL (0.15-1.2)
[2025-01-20 07:00] LABS: NT Pro B Type Natriuretic Pept 26593 pg/mL (0-450)
[2025-01-20] MEDS: ferrous sulfate EC 325 mg Tablet PO (09:10)
[2025-01-20] MEDS: ATORVASTATIN 10 MG TABLET PO ×2 (09:10→20:50)
[2025-01-20] MEDS: apixaban 5 mg Tablet 2.5 MG PO ×2 (09:11→16:58)
[2025-01-20] MEDS: pyridoxine 50 mg Tablet 100 MG PO (09:11)
[2025-01-20] MEDS: levothyroxine 25 mcg Tablet PO (09:12)
--- NOTE | 2025-01-20 10:12 | PC.SOCIAL ---
IMM Updated Updated pt & her on IMM. No questions voiced. Provided pt a copy. Initialed, dated, & timed a copy & placed in chart.
--- NOTE | 2025-01-20 13:14 | P.PN_ITS ---
Subjective 2 Subjective: Seen her at bedside this morning. No acute overnight events noted. Reports feeling better. She is alert awake oriented x 3 family present at bedside, informed plan of care. Family informed that she has been feeling weak recently, usually walks with a cane or a walker but has not been able to do so recently. Medications: Reviewed: Yes Vitals/I&O/Wt Last Vital Signs Temp 98.1 F 01/20/25 11:37 Pulse 71 01/20/25 11:37 Resp 18 01/20/25 11:37 BP 113/77 01/20/25 11:37 Pulse Ox 97 01/20/25 11:37 O2 Del Method Nasal Cannula 01/20/25 11:37 O2 Flow Rate 3 01/20/25 08:15 01/19/25 01/20/25 01/20/25 22:59 06:59 14:59 Intake Total 1730 / 1730 360 / 360 Balance 1730 / 1730 360 / 360 Weight last 48 hrs Weight 42.184 kg Weight 42.241 kg Weight 42.184 kg Physical Exam 2 Narrative: She is alert awake oriented x 3, fragile, not in acute distress Chest clear to auscultation bilaterally Cardiovascular normal heart sounds no murmurs Abdomen soft nontender nondistended normal bowel sounds Extremities no edema noted bilateral lower extremity Data 01/20/25 06:13 01/20/25 06:13 Micro: Microbiology 01/19/25 17:40 Blood Culture - Preliminary Blood SPECIMEN COLLECTED 01/19/25 17:38 Blood Culture - Preliminary Blood SPECIMEN COLLECTED A&P Assessment and plan (1) Acute encephalopathy: (2) Pneumonia: (3) CHF (congestive heart failure): Qualifiers: Heart failure type: unspecified Heart failure chronicity: chronic Q ualified Code(s): I50.9 - Heart failure, unspecified (4) Atrial fibrillation: Qualifiers: Atrial fibrillation type: paroxysmal Qualified Code(s): I48.0 - Paroxysmal atrial fibrillation (5) Mitral valve regurgitation due to cardiomyopathy: Plan Acute encephalopathy - Neurochecks, aspiration precautions, and a stroke scale - Likely secondary to pneumonia Pneumonia - Seen on chest x-ray 2.4 cm rounded pneumonia right middle lung field - Start Rocephin - Start azithromycin Acute kidney injury - Will stop fluids as there is risk of fluid overload - Potential contrast-induced nephropathy - Potentially cardiorenal syndrome - Monitor renal function, monitor urine output Systolic CHF exacerbation - Lasix 40 IV daily - Monitor urine output, monitor creatinine - Repeat cardiac echo Mitral valve regurg, deemed to not be a suitable candidate for mitral valve clip Bilateral pleural effusions, Lasix as above Atrial fibrillation, continue Eliquis, continue metoprolol BMI 17, evidence of moderate protein malnutrition, physical deconditioning - PT OT Patient is a DNR DNI, patient and family tells me that she has DNR paperwork Eliquis for DVT prophylaxis 01/20/25 Creatinine 2.7, baseline is 1.5. BNP trending down to 26 593 3 sets of troponins 59, 55, 53 plateaued TSH 7.1 Will start on p.o. levothyroxine 25 mcg daily Acute renal failure likely secondary to contrast-induced nephropathy, she had CT with contrast on Thursday. Unable to do IV fluids secondary to CHF exacerbation. Will monitor for now. Blood pressure soft. Continue Lasix. ECHO CONCLUSIONS Normal LV size and ejection fraction of 61.5%. No gross wall motion normalities. Because of the atrial fibrillation, segmental wall motion analysis somewhat difficult. The right ventricle appears to be normal size and ejection fraction. Some thickening of the right ventricular free wall suggesting RV pressure overload. Estimated pulmonary artery peak systolic pressure of 67 mmHg. Severely increased left atrial volume 123.6 ml/m squared. Appears to have a patent foramen ovale with [id number]-js-qqzmh shunt. No atrial septal aneurysm Moderately increased right atrial size. Severe bileaflet prolapse. Possibly severe mitral regurgitation. Thickened aortic valve. Trace to mild aortic valve regurgitation. [id number]-yszzncgc tricuspid valve regurgitation. Bsww-um-pvwrhjhr pulmonary valve regurgitation. Small pericardial effusion. Compared to the study from 04/27/2022, there is worsening of the mitral regurgitation, pulmonary hypertension and atrial chamber sizes. PDMP PDMP Reviewed: Not Reviewed Attestations 2 Medical Necessity Statement*: Patient requires hospitalization, inpatient, greater than 2 midnights, for acute encephalopathy, systolic CHF, pneumonia Time Spent in Patient Care: 20minutes Coding Level of Care Code Acute Code for Chg Fwd Diagnoses Acute encephalopathy G93.40 Pneumonia J18.9 Chronic congestive heart failure, unspecified heart failure type I50.9 Heart failure type: unspecified Heart failure chronicity: chronic Paroxysmal atrial fibrillation I48.0 Atrial fibrillation type: paroxysmal Mitral valve regurgitation due to cardiomyopathy I34.0; I42.9 Time Spent (min) 20
[2025-01-20] MEDS: carvedilol 12.5 mg Tablet PO (16:58)
[2025-01-20] MEDS: cefTRIAXone 1,000 mg SDV 1000 MG IVP (20:50)
[2025-01-20] MEDS: pantoprazole 40 mg SDV IVP (20:51)
[2025-01-20] MEDS: AZITHROMYCIN ADD-Vantage 500 MG in 0.9% NaCl ADD-Vantage 250 ML 250 MG IV (20:58)
--- NOTE | 2025-01-20 21:39 | USCV_ITS ---
Joy Sewell Age: 84 Gender: F : 1940 Exam Date: 01/20/2025 00:55 Ordering Phys: Vamshi Rouse MD Technologist: JAVY Exam Location: [facility] [place] Indication: chf, AMS, Afib, severe MR BP: 111 / 82 HR: 85 Rhythm: Atrial fibrillation Technical Quality: Adequate MEASUREMENTS (Male / Female) Normal Values 2D ECHO LV Diastolic Diameter PLAX 4.1 cm 4.2 - 5.9 / 3.9 - 5.3 cm IVS Diastolic Thickness 1.1 cm 0.6 - 1.0 / 0.6 - 0.9 cm IVS Systolic Thickness 1.7 cm LVPW Diastolic Thickness 1.6 cm 0.6 - 1.0 / 0.6 - 0.9 cm LVPW Systolic Thickness 1.5 cm LVOT Diameter 2.0 cm LV Ejection Fraction 2D Teich 60.8 % LV Ejection Fraction MOD 4C 61.5 % LV Ejection Fraction MOD 2C 72.0 % LV Ejection Fraction 2C AL 71.4 % LA Diameter 6.7 cm LA Sys Volume AL 165.7 cm cubed LA Sys Volume Index AL 123.6 cm cubed/m squared Aorta at Sinotubular Diameter 3.3 cm IVC Diameter 1.9 cm M-MODE LA Ao Ratio MM 3.0 AV Cusp Separation MM 1.5 cm DOPPLER AV Peak Velocity 81.0 cm/s LVOT Peak Velocity 36.0 cm/s AV Area Cont Eq vti 1.3 cm squared AV Area Cont Eq pk 1.4 cm squared MV Peak Velocity 208.0 cm/s MV Area PHT 3.6 cm squared Mitral E to A Ratio 719.0 TV Peak Velocity 358.0 cm/s TR Peak Velocity 378.0 cm/s TR Peak Gradient 57.2 mmHg TV Peak E Velocity 48.0 cm/s PV Peak Velocity 87.0 cm/s FINDINGS Left Ventricle Normal LV size and ejection fraction of 61.5%. No gross wall motion normalities. Because of the atrial fibrillation, segmental wall motion analysis somewhat difficult. Right Ventricle The right ventricle appears to be normal size and ejection fraction. Some thickening of the right ventricular free wall. Right Atrium Moderately increased right atrial size. Left Atrium Severely increased left atrial volume 123.6 ml/m squared. Appears to have a patent foramen ovale with [id number]-wa-uvpzo shunt. No atrial septal aneurysm Mitral Valve Severe bileaflet prolapse. Possibly severe mitral regurgitation. Aortic Valve Thickened aortic valve. Trace to mild aortic valve regurgitation. Tricuspid Valve Bmou-vy-byeoslcn tricuspid valve regurgitation. Estimated pulmonary artery peak systolic pressure of 67 mmHg Pulmonic Valve Xhjn-iw-jqvufedt pulmonary valve regurgitation. Pericardium Small pericardial effusion. Aorta Normal aortic annulus size. IVC Normal IVC dimension with <50% respiratory change of the inferior vena cava. CONCLUSIONS Normal LV size and ejection fraction of 61.5%. No gross wall motion normalities. Because of the atrial fibrillation, segmental wall motion analysis somewhat difficult. The right ventricle appears to be normal size and ejection fraction. Some thickening of the right ventricular free wall suggesting RV pressure overload. Estimated pulmonary artery peak systolic pressure of 67 mmHg. Severely increased left atrial volume 123.6 ml/m squared. Appears to have a patent foramen ovale with yfrs-mj-oximh shunt. No atrial septal aneurysm Moderately increased right atrial size. Severe bileaflet prolapse. Possibly severe mitral regurgitation. Thickened aortic valve. Trace to mild aortic valve regurgitation. Hvgp-kb-nrhbjeei tricuspid valve regurgitation. Qsyg-ud-uiqjovjr pulmonary valve regurgitation. Small pericardial effusion. Compared to the study from 04/27/2022, there is worsening of the mitral regurgitation, pulmonary hypertension and atrial chamber sizes. Dr Soraya Chadwick MD [facility] (Electronically Signed) Final Date: 20 January 2025 11:00 S
[2025-01-21] VITALS (11 sets, daily range): BP systolic 93–114; BP diastolic 61–82; PULSE 70–96; RESP 15–18; TEMP 36.4–37.2; O2SAT 94–99
[2025-01-21] MEDS: levothyroxine 25 mcg Tablet PO (05:17)
[2025-01-21 05:32] LABS: Basophils % 0.6 %; Eosinophils # 0.2 10^3/uL (0.0-0.8); Eosinophils % 3.2 %; Hematocrit 39.4 % (36-47); Lymphocytes # 0.6 10^3/uL (0.8-4.8); Lymphocytes % 12.7 %; Mean Corpuscular HGB Conc 30.2 g/dL (30-55); Mean Corpuscular Hemoglobin 32.2 pg (27-33); Mean Corpuscular Volume 106.5 fl (85-98); Mean Platelet Volume 10.4 fL (7.4-10.4); Monocytes # 0.5 10^3/uL (0.2-0.9); Monocytes % 10.1 %; Neutrophils # 3.39 10^3/uL (1.8-7.7); Nucleated Red Blood Cells % 0 %; Platelet Count 128 10^3/cmm (157-399); Red Cell Distribution Width 14.8 % (12.1-15.1); White Blood Count 4.65 10^3/uL (3.29-11.43)
[2025-01-21 06:02] LABS: Anion Gap 14.6 (5-19); Blood Urea Nitrogen 41 mg/dL (8-23); Calcium 8.3 mg/dL (8.5-10.5); Carbon Dioxide 22 mmol/L (22-29); Chloride 111 mmol/L (98-107); Creatinine Clr Calc Pharmacy 10.6164; Glucose 86 mg/dL (65-115); Osmolality Calculated 305 mOsm/kg (285-295); Potassium 4.6 mmol/L (3.5-5.1); Sodium 143 mmol/L (136-145)
[2025-01-21] MEDS: pyridoxine 50 mg Tablet 100 MG PO (08:31)
[2025-01-21] MEDS: apixaban 5 mg Tablet 2.5 MG PO ×2 (08:31→17:16)
[2025-01-21] MEDS: potassium chloride ER 20 mEq Tablet PO (08:31)
[2025-01-21] MEDS: carvedilol 12.5 mg Tablet PO ×2 (08:31→17:16)
[2025-01-21] MEDS: ferrous sulfate EC 325 mg Tablet PO (08:31)
[2025-01-21] MEDS: FUROsemide 10 mg/mL SDV 2mL 20 MG IVP (08:32)
--- NOTE | 2025-01-21 13:02 | P.PN_ITS ---
Subjective 2 Subjective: No acute overnight events noted. Was seen at bedside this morning. Reports feeling better and go home. Explained her about worsening renal function and plan to discharge home probably in a day or two. Medications: Reviewed: Yes Vitals/I&O/Wt Last Vital Signs Temp 97.5 F L 01/21/25 11:58 Pulse 78 01/21/25 11:58 Resp 16 01/21/25 11:58 BP 105/71 01/21/25 11:58 Pulse Ox 96 01/21/25 11:58 O2 Del Method Nasal Cannula 01/21/25 11:58 O2 Flow Rate 1.5 01/21/25 08:53 01/20/25 01/21/25 01/21/25 22:59 06:59 14:59 Intake Total 490 / 850 0 / 850 360 / 360 Balance 490 / 850 0 / 850 360 / 360 Weight last 48 hrs Weight 45.586 kg Weight 42.184 kg Weight 42.241 kg Weight 42.184 kg Physical Exam 2 Narrative: She is alert awake oriented x 3, fragile, not in acute distress Chest clear to auscultation bilaterally Cardiovascular normal heart sounds no murmurs Abdomen soft nontender nondistended normal bowel sounds Extremities no edema noted bilateral lower extremity Data 01/21/25 04:47 01/21/25 04:47 Micro: Microbiology 01/19/25 17:40 Blood Culture - Preliminary Blood NEGATIVE TO DATE 01/19/25 17:38 Blood Culture - Preliminary Blood NEGATIVE TO DATE A&P Assessment and plan (1) Acute encephalopathy: (2) Pneumonia: (3) CHF (congestive heart failure): Qualifiers: Heart failure type: unspecified Heart failure chronicity: chronic Q ualified Code(s): I50.9 - Heart failure, unspecified (4) Atrial fibrillation: Qualifiers: Atrial fibrillation type: paroxysmal Qualified Code(s): I48.0 - Paroxysmal atrial fibrillation (5) Mitral valve regurgitation due to cardiomyopathy: Plan Acute encephalopathy - Neurochecks, aspiration precautions, and a stroke scale - Likely secondary to pneumonia Pneumonia - Seen on chest x-ray 2.4 cm rounded pneumonia right middle lung field - Start Rocephin - Start azithromycin Acute kidney injury - Will stop fluids as there is risk of fluid overload - Potential contrast-induced nephropathy - Potentially cardiorenal syndrome - Monitor renal function, monitor urine output Systolic CHF exacerbation - Lasix 40 IV daily - Monitor urine output, monitor creatinine - Repeat cardiac echo Mitral valve regurg, deemed to not be a suitable candidate for mitral valve clip Bilateral pleural effusions, Lasix as above Atrial fibrillation, continue Eliquis, continue metoprolol BMI 17, evidence of moderate protein malnutrition, physical deconditioning - PT OT Patient is a DNR DNI, patient and family tells me that she has DNR paperwork Eliquis for DVT prophylaxis 01/20/25 Creatinine 2.7, baseline is 1.5. BNP trending down to 26 593 3 sets of troponins 59, 55, 53 plateaued TSH 7.1 Will start on p.o. levothyroxine 25 mcg daily Acute renal failure likely secondary to contrast-induced nephropathy, she had CT with contrast on Thursday. Unable to do IV fluids secondary to CHF exacerbation. Will monitor for now. Blood pressure soft. Continue Lasix. ECHO CONCLUSIONS Normal LV size and ejection fraction of 61.5%. No gross wall motion normalities. Because of the atrial fibrillation, segmental wall motion analysis somewhat difficult. The right ventricle appears to be normal size and ejection fraction. Some thickening of the right ventricular free wall suggesting RV pressure overload. Estimated pulmonary artery peak systolic pressure of 67 mmHg. Severely increased left atrial volume 123.6 ml/m squared. Appears to have a patent foramen ovale with [id number]-gsvpg shunt. No atrial septal aneurysm Moderately increased right atrial size. Severe bileaflet prolapse. Possibly severe mitral regurgitation. Thickened aortic valve. Trace to mild aortic valve regurgitation. Dtof-ip-pzewxqyp tricuspid valve regurgitation. Ekkh-jv-cwrmryzb pulmonary valve regurgitation. Small pericardial effusion. Compared to the study from 04/27/2022, there is worsening of the mitral regurgitation, pulmonary hypertension and atrial chamber sizes. 01/21/25 Creatinine noted to be 2.9 today, Lasix changed to IV 20 mg every 24 hours. Will follow-up labs in a.m. Acute congestive heart failure resolving Has been walking to the bathroom with 1 assist. Plan for discharge in 24 to 48 hours PDMP PDMP Reviewed: Not Reviewed Attestations 2 Medical Necessity Statement*: Patient requires hospitalization, inpatient, greater than 2 midnights, for systolic CHF, pneumonia Time Spent in Patient Care: 15minutes Coding Level of Care Code Acute Code for Chg Fwd Diagnoses Acute encephalopathy G93.40 Pneumonia J18.9 Chronic congestive heart failure, unspecified heart failure type I50.9 Heart failure type: unspecified Heart failure chronicity: chronic Paroxysmal atrial fibrillation I48.0 Atrial fibrillation type: paroxysmal Mitral valve regurgitation due to cardiomyopathy I34.0; I42.9 Time Spent (min) 15
[2025-01-21] MEDS: cefTRIAXone 1,000 mg SDV 1000 MG IVP (21:03)
[2025-01-21] MEDS: ATORVASTATIN 10 MG TABLET PO (21:03)
[2025-01-21] MEDS: pantoprazole 40 mg SDV IVP (21:03)
[2025-01-21] MEDS: AZITHROMYCIN ADD-Vantage 500 MG in 0.9% NaCl ADD-Vantage 250 ML 250 MG IV (21:04)
[2025-01-21 21:05] LABS: Anion Gap 15.6 (5-19); Blood Urea Nitrogen 41 mg/dL (8-23); Calcium 8.3 mg/dL (8.5-10.5); Carbon Dioxide 23 mmol/L (22-29); Chloride 109 mmol/L (98-107); Creatinine Clr Calc Pharmacy 10.6164; Glucose 152 mg/dL (65-115); Magnesium 1.8 mg/dL (1.7-2.3); Osmolality Calculated 309 mOsm/kg (285-295); Potassium 4.6 mmol/L (3.5-5.1); Sodium 143 mmol/L (136-145)
[2025-01-21] MEDS: latanoprost 0.005% Op Soln 2.5 mL Btl 1 DROP EYE-BOTH (21:17)
[2025-01-22] VITALS (7 sets, daily range): BP systolic 98–118; BP diastolic 66–82; PULSE 66–80; RESP 16–18; TEMP 36.4–37; O2SAT 88–98
[2025-01-22 04:58] LABS: Basophils % 0.4 %; Eosinophils # 0.2 10^3/uL (0.0-0.8); Eosinophils % 3.8 %; Hematocrit 39.3 % (36-47); Lymphocytes # 0.6 10^3/uL (0.8-4.8); Lymphocytes % 11.6 %; Mean Corpuscular HGB Conc 30.3 g/dL (30-55); Mean Corpuscular Hemoglobin 31.5 pg (27-33); Mean Platelet Volume 10.4 fL (7.4-10.4); Monocytes # 0.5 10^3/uL (0.2-0.9); Monocytes % 10.9 %; Neutrophils # 3.47 10^3/uL (1.8-7.7); Neutrophils % 73.1 %; Nucleated Red Blood Cells % 0 %; Platelet Count 132 10^3/cmm (157-399); Red Blood Count 3.78 10^6/uL (3.85-5.65); Red Cell Distribution Width 14.6 % (12.1-15.1); White Blood Count 4.75 10^3/uL (3.29-11.43)
[2025-01-22 05:29] LABS: Anion Gap 14.9 (5-19); Blood Urea Nitrogen 40 mg/dL (8-23); Calcium 8.2 mg/dL (8.5-10.5); Carbon Dioxide 25 mmol/L (22-29); Chloride 108 mmol/L (98-107); Creatinine Clr Calc Pharmacy 12.1172; Glucose 91 mg/dL (65-115); Osmolality Calculated 305 mOsm/kg (285-295); Potassium 4.9 mmol/L (3.5-5.1); Sodium 143 mmol/L (136-145)
[2025-01-22] MEDS: levothyroxine 25 mcg Tablet PO (05:33)
[2025-01-22] MEDS: carvedilol 12.5 mg Tablet PO (06:26)
[2025-01-22] MEDS: magnesium sulfate premix 1 GM/100 ML PIGGYBACK IV (06:27)
[2025-01-22] MEDS: pyridoxine 50 mg Tablet 100 MG PO (08:48)
[2025-01-22] MEDS: potassium chloride ER 20 mEq Tablet PO (08:48)
[2025-01-22] MEDS: apixaban 5 mg Tablet 2.5 MG PO (08:48)
[2025-01-22] MEDS: FUROsemide 10 mg/mL SDV 2mL 20 MG IVP (08:48)
[2025-01-22] MEDS: ferrous sulfate EC 325 mg Tablet PO (08:48)
--- NOTE | 2025-01-22 10:51 | P.DS_ITS ---
Discharge Providers Date of Admission: 01/19/25 21:36 Date of Discharge: January 22, 2025 Attending Provider at Admission: Vamshi Rouse MD Attending Provider at Discharge: Danielle Jeong MD Primary Care Provider: Rodrigue Dillon MD Diagnoses at Discharge Discharge Diagnosis (1) Acute encephalopathy: Status: Acute (2) Pneumonia: Status: Acute (3) CHF (congestive heart failure): Status: Acute Qualifiers: Heart failure type: unspecified Heart failure chronicity: chronic Qualified Code(s): I50.9 - Heart failure, unspecified (4) Atrial fibrillation: Status: Acute Qualifiers: Atrial fibrillation type: paroxysmal Qualified Code(s): I48.0 - Paroxysmal atrial fibrillation (5) Mitral valve regurgitation due to cardiomyopathy: Status: Acute Reason for Visit Reason for Visit: Low o2, sob, Ams Brief History: Joy Sewell is a 84 year old female with a past medical history of cardiomyopathy, EF of 35%, systolic CHF, atrial fibrillation on Eliquis, hypertension, history of severe mitral valve regurgitation found to not be a good candidate for mitral clip, who presents [facility] due to altered mental status. According to family members, she has been increasingly weak and fatigued recently, she has been more short of breath, no edema, no orthopnea, no paroxysmal nocturnal dyspnea, she has had a productive cough, family also reports intermittent hemoptysis at times with her cough, no fevers, no chills, according to family she has had episodes of confusion, hallucination, currently she is alert to person, to place, to time she follows commands, does report a fall, she fell on her back Hospital Course Hospital Course Plan Acute encephalopathy - Neurochecks, aspiration precautions, and a stroke scale - Likely secondary to pneumonia Pneumonia - Seen on chest x-ray 2.4 cm rounded pneumonia right middle lung field - Start Rocephin - Start azithromycin Acute kidney injury - Will stop fluids as there is risk of fluid overload - Potential contrast-induced nephropathy - Potentially cardiorenal syndrome - Monitor renal function, monitor urine output Systolic CHF exacerbation - Lasix 40 IV daily - Monitor urine output, monitor creatinine - Repeat cardiac echo Mitral valve regurg, deemed to not be a suitable candidate for mitral valve clip Bilateral pleural effusions, Lasix as above Atrial fibrillation, continue Eliquis, continue metoprolol BMI 17, evidence of moderate protein malnutrition, physical deconditioning - PT OT Patient is a DNR DNI, patient and family tells me that she has DNR paperwork Eliquis for DVT prophylaxis 01/20/25 Creatinine 2.7, baseline is 1.5. BNP trending down to 26 593 3 sets of troponins 59, 55, 53 plateaued TSH 7.1 Will start on p.o. levothyroxine 25 mcg daily Acute renal failure likely secondary to contrast-induced nephropathy, she had CT with contrast on Thursday. Unable to do IV fluids secondary to CHF exacerbation. Will monitor for now. Blood pressure soft. Continue Lasix. ECHO CONCLUSIONS Normal LV size and ejection fraction of 61.5%. No gross wall motion normalities. Because of the atrial fibrillation, segmental wall motion analysis somewhat difficult. The right ventricle appears to be normal size and ejection fraction. Some thickening of the right ventricular free wall suggesting RV pressure overload. Estimated pulmonary artery peak systolic pressure of 67 mmHg. Severely increased left atrial volume 123.6 ml/m squared. Appears to have a patent foramen ovale with [id number] shunt. No atrial septal aneurysm Moderately increased right atrial size. Severe bileaflet prolapse. Possibly severe mitral regurgitation. Thickened aortic valve. Trace to mild aortic valve regurgitation. Dhkh-qs-wqainryl tricuspid valve regurgitation. Dfly-ft-ztnxxeio pulmonary valve regurgitation. Small pericardial effusion. Compared to the study from 04/27/2022, there is worsening of the mitral regurgitation, pulmonary hypertension and atrial chamber sizes. 01/21/25 Creatinine noted to be 2.9 today, worsening renal failure . Lasix changed to IV 20 mg every 24 hours. Will follow-up labs in a.m. Acute congestive heart failure resolving Has been walking to the bathroom with 1 assist. Plan for discharge in 24 to 48 hours 01/22/25 She is doing well, saturating well on supplemental oxygen. Hemodynamically stable. would need supplemental oxygen at home. worsening renal function improving. Will discharge her with po antibotics. Family to call insurance for home services. Physical Exam Narrative: She is alert awake oriented x 3, fragile, not in acute distress Chest clear to auscultation bilaterally Cardiovascular normal heart sounds no murmurs Abdomen soft nontender nondistended normal bowel sounds Extremities no edema noted bilateral lower extremity Discharge Data Studies Completed and Pending Completed Studies During Hospitalization Category Date Time Status CT head wo con* [id number] Stat Cat Scan 01/19/25 17:49 Completed XR chest 1V portable [id number] Stat Exams 01/19/25 16:33 Completed CV. echo complete* [id number] Stat Ultrasound 01/20/25 21:39 Completed Pending at discharge Category Date Time Status Blood Culture Stat Lab 01/19/25 17:40 Results Radiology Impressions Chest X-Ray 01/19/25 16:33 IMPRESSION: 1. Moderate to severe globular cardiomegaly consistent with 4-chamber enlargment and/or pericardial effusion. Comparison CT shows large right atrium, left atrium and moderate pericardial fluid. 2. 2.4 cm rounded pneumonia right mid lung field which appears to be possible peripheral scarring/atelectasis and loculated pleural fluid on comparison CT scan. Head CT 01/19/25 17:49 IMPRESSION: No acute intracranial abnormality. Laboratory Results WBC 4.75 10^3/uL (3.29-11.43) 01/22/25 04:41 RBC 3.78 10^6/uL (3.85-5.65) L 01/22/25 04:41 Hgb 11.90 g/dL (11.27-16.99) 01/22/25 04:41 Hct 39.3 % (36-47) 01/22/25 04:41 MCV 104.0 fl (85-98) H 01/22/25 04:41 MCH 31.5 pg (27-33) 01/22/25 04:41 MCHC 30.3 g/dL (30-55) 01/22/25 04:41 RDW 14.6 % (12.1-15.1) 01/22/25 04:41 Plt Count 132 10^3/cmm (157-399) L 01/22/25 04:41 MPV 10.4 fL (7.4-10.4) 01/22/25 04:41 Neut % (Auto) 73.1 % 01/22/25 04:41 Lymph % (Auto) 11.6 % 01/22/25 04:41 [place] % (Auto) 10.9 % 01/22/25 04:41 Eos % (Auto) 3.8 % 01/22/25 04:41 Baso % (Auto) 0.4 % 01/22/25 04:41 Neut # (Auto) 3.47 10^3/uL (1.8-7.7) 01/22/25 04:41 Lymph # (Auto) 0.6 10^3/uL (0.8-4.8) L 01/22/25 04:41 [place] # (Auto) 0.5 10^3/uL (0.2-0.9) 01/22/25 04:41 Eos # (Auto) 0.2 10^3/uL (0.0-0.8) 01/22/25 04:41 Baso # (Auto) 0.0 10^3/uL (0.0-0.1) 01/22/25 04:41 Nucleated RBC % (auto) 0 % 01/22/25 04:41 Nucleated RBCs # 0.0 /100WBC 01/22/25 04:41 Specimen Type Arterial 01/19/25 17:10 Sample Site Radial, left 01/19/25 17:10 ABG pH 7.43 (7.35-7.45) 01/19/25 17:10 ABG pCO2 34.7 mmHg (35-45) L 01/19/25 17:10 ABG pO2 69.6 mmHg (80.0-100.0) L 01/19/25 17:10 ABG PO2/FiO2 Ratio 331 01/19/25 17:10 ABG HCO3 23.0 mmol/L (22-26) 01/19/25 17:10 ABG O2 Saturation 94.6 01/19/25 17:10 ABG Base Excess -0.9 mmol/L (-2.0-2.0) 01/19/25 17:10 Deny Test Pos 01/19/25 17:10 A-a O2 Gradient 4.6 mmHg (5-10) L 01/19/25 17:10 Hematocrit 40.6 % (37-47) 01/19/25 17:10 Hgb O2 Saturation 92.7 % (95-100) L 01/19/25 17:10 Carboxyhemoglobin 1.3 %THgb (0.4-20.1) 01/19/25 17:10 Methemoglobin 0.8 % (0.4-1.5) 01/19/25 17:10 Total Hemoglobin 13.2 g/dL (12-16) 01/19/25 17:10 Sodium 143.0 mmol/L (131-143) 01/19/25 17:10 Potassium 4.6 mmol/L (3.5-5.0) 01/19/25 17:10 Glucose 101.0 mg/dL (70-115) 01/19/25 17:10 Ionized Calcium 1.2 mmol/L (1.1-1.4) 01/19/25 17:10 O2 Delivery Device Room air 01/19/25 17:10 FiO2 21.0 % 01/19/25 17:10 Em Physician ID [facility] 01/19/25 17:10 Sodium 143 mmol/L (136-145) 01/22/25 04:41 Potassium 4.9 mmol/L (3.5-5.1) 01/22/25 04:41 Chloride 108 mmol/L (98-107) H 01/22/25 04:41 Carbon Dioxide 25 mmol/L (22-29) 01/22/25 04:41 Anion Gap 14.9 (5-19) 01/22/25 04:41 BUN 40 mg/dL (8-23) H 01/22/25 04:41 Creatinine 2.6 mg/dL (0.5-0.9) H 01/22/25 04:41 GFR Calculation Not Reportable 01/22/25 04:41 Glucose 91 mg/dL (65-115) 01/22/25 04:41 Calculated Osmolality 305 mOsm/kg (285-295) H 01/22/25 04:41 Lactic Acid 1.3 mmol/L (0.5-2.2) 01/19/25 17:38 Calcium 8.2 mg/dL (8.5-10.5) L 01/22/25 04:41 Magnesium 1.8 mg/dL (1.7-2.3) 01/21/25 20:23 Total Bilirubin 0.6 mg/dL (0.15-1.2) 01/20/25 06:13 AST 24 U/L (0-32) 01/20/25 06:13 ALT 21 U/L (0-33) 01/20/25 06:13 Alkaline Phosphatase 55 U/L (35-105) 01/20/25 06:13 Troponin T Baseline 59 ng/L (0-10) H 01/19/25 17:38 Troponin T 120 Minute 55.85 ng/L (0-10) H 01/19/25 19:27 Delta Troponin T -3.15 ABS# (0-10) L 01/19/25 19:27 Troponin T Hi Sens 6Hr 53.35 ng/L (0-10) H 01/20/25 00:01 Troponin T Hi Sens 6Hr Delta -5.65 ng/L (0-12) L 01/20/25 00:01 C-Reactive Protein 3.0 mg/L (0.0-4.9) 01/19/25 17:38 NT-Pro-B Natriuret Pep 77207 pg/mL (0-450) H 01/20/25 06:13 Total Protein 6.0 g/dL (6.6-8.7) L 01/20/25 06:13 Albumin 3.2 g/dL (3.5-5.2) L 01/20/25 06:13 Globulin 2.8 g/dL (1.3-4.6) 01/20/25 06:13 Procalcitonin 0.17 ng/mL (0-0.5) 01/19/25 19:27 TSH 7.11 uIU/mL (0.27-4.20) H 01/19/25 19:27 Urine Color Yellow (Yellow) 01/19/25 18:09 Urine Appearance Clear (CLEAR) 01/19/25 18:09 Urine pH 5.0 (5-7) 01/19/25 18:09 Ur Specific [place] 1.017 (1.005-1.030) 01/19/25 18:09 Urine Protein Trace (Negative) A 01/19/25 18:09 Urine Glucose (UA) Negative (Normal) 01/19/25 18:09 Urine Ketones Negative (Negative) 01/19/25 18:09 Urine Blood Negative (Negative) 01/19/25 18:09 Urine Nitrate Negative (Negative) 01/19/25 18:09 Urine Bilirubin Negative (Negative) 01/19/25 18:09 Urine Urobilinogen 0.2 mg/dL (Negative) 01/19/25 18:09 Ur Leukocyte Esterase Negative (Negative) 01/19/25 18:09 Urine RBC 3-5 /hpf (0-2) 01/19/25 18:09 Urine WBC 0-5 /hpf (0-5) 01/19/25 18:09 Ur Squamous Epith Cells 6-10 /hpf (0-5) 01/19/25 18:09 Amorphous Sediment Not Reportable 01/19/25 18:09 Urine Bacteria 1+ /hpf (NONE) H 01/19/25 18:09 Hyaline Casts 18.61 /lpf 01/19/25 18:09 Influenza A (PCR) Negative (Negative) 01/19/25 17:15 Influenza Type B (PCR) Negative (Negative) 01/19/25 17:15 RSV (PCR) Negative (Negative) 01/19/25 17:15 SARS-CoV-2 (PCR) Negative (Negative) 01/19/25 17:15 Vitals Last Vital Signs Temp 98.1 F 01/22/25 07:23 Pulse 75 01/22/25 07:31 Resp 16 01/22/25 07:31 BP 98/67 01/22/25 07:23 Pulse Ox 96 01/22/25 07:31 O2 Del Method Nasal Cannula 01/22/25 07:31 O2 Flow Rate 2 01/22/25 07:31 Discharge Plan Discharge Patient Disposition: Home Condition: Stable Prescriptions: New ferrous sulfate 325 mg (65 mg iron) Tablet,Delayed Release (Dr/Ec) 325 mg PO DAILY Qty: 30 0RF levothyroxine 25 mcg Tablet 25 mcg PO QAM 90 Days Qty: 90 0RF levofloxacin 750 mg tablet 750 mg PO DAILY 7 Days Qty: 7 0RF furosemide [Lasix] 20 mg tablet 20 mg PO DAILY Qty: 30 0RF Continued latanoprost 0.005 % drops 1 drp ophthalmic (eye) DAILY Rx Instructions: both eyes vitamin B complex [B Complex-Vitamin B12] Tablet 1 tab PO DAILY coenzyme Q10 [Co Q-10] 100 mg capsule 100 mg PO DAILY omega-3 fatty acids [Fish Oil Concentrate] 1,000 mg capsule 1,000 mg PO DAILY calcium carb-mag ox-zinc sulf 334-134-5 mg tablet 1 tab PO DAILY Rx Instructions: administer with a meal vitamin E 200 unit capsule 200 unit PO DAILY ascorbic acid (vitamin C) 1,000 mg tablet 1,000 mg PO DAILY folic acid 400 mcg tablet 0.4 mg PO DAILY pyridoxine (vitamin B6) 100 mg tablet 100 mg PO DAILY apixaban 2.5 mg tablet 2.5 mg PO BID Qty: 180 2RF potassium chloride 20 mEq tablet extended release 20 meq PO DAILY Qty: 90 2RF omeprazole 40 mg capsule,delayed release(DR/EC) 40 mg PO DAILY carvedilol 12.5 mg tablet 12.5 mg PO BID Qty: 180 2RF Rx Instructions: must administer with a meal/food atorvastatin 10 mg Tablet 10 mg PO QPM dicyclomine 10 mg Capsule 10 mg PO TID Discontinued cefuroxime axetil 250 mg tablet 250 mg PO BID furosemide 40 mg tablet 40 mg PO DAILY Discharge Orders: Discharge Order (Routine); Ordered 01/22/25 Ordered By: Danielle Jeong Other Ambulatory Orders: DME: Walker (Order) Location: None Selected Ordered By: Danielle Jeong Referrals: [facility] [Other] (Call this number if you are wanting services in the home. They will ask you questions & based off your answers, you are given points. You have to have a certain number of points to qualify for services. They can help get assistance with cooking, cleaning, errands, etc. ) Rodrigue Dillon MD [Primary Care Provider] - Discharge Diet: Cardiac Discharge Activity: Increase activity as tolerated Patient Instructions: Altered Mental Status (ED), Opioid Safety Discharge Attestations Time Spent in Discharge Care*: less than 30 min Quality Metrics Clinical Quality Measures [ No reported AMI, CVA or VTE this stay] Coding Level of Care Code Acute Code for Chg Fwd Diagnoses Acute encephalopathy G93.40 Pneumonia J18.9 Chronic congestive heart failure, unspecified heart failure type I50.9 Heart failure type: unspecified Heart failure chronicity: chronic Paroxysmal atrial fibrillation I48.0 Atrial fibrillation type: paroxysmal Mitral valve regurgitation due to cardiomyopathy I34.0; I42.9 Time Spent (min) 20
== END 2025-01-22 12:46 | disposition home or self-care (01) | DRG 193 ==
LOC: ER 23:46 → MEDSURG 01-20 00:08
PROVIDERS: Emergency Medicine; Admitting Provider Family Medicine; Emergency Provider Student in an Organized Health Care Education/Training Program; PCP Family Medicine; Visit Provider Internal Medicine
DX: J18.9 Pneumonia, unspecified organism (principal); G93.41 Metabolic encephalopathy; I50.23 Acute on chronic systolic (congestive) heart failure; N17.9 Acute kidney failure, unspecified; I42.9 Cardiomyopathy, unspecified; E44.0 Moderate protein-calorie malnutrition; Z68.1 Body mass index [BMI] 19.9 or less, adult; Z79.899 Other long term (current) drug therapy; Z79.01 Long term (current) use of anticoagulants; Z88.1 Allergy status to other antibiotic agents; Z88.8 Allergy status to other drugs, medicaments and biological substances; Z86.73 Personal history of transient ischemic attack (TIA), and cerebral infarction without residual deficits; I11.0 Hypertensive heart disease with heart failure; I34.0 Nonrheumatic mitral (valve) insufficiency; I48.0 Paroxysmal atrial fibrillation; Z66 Do not resuscitate; W19.XXXA Unspecified fall, initial encounter
CPT/HCPCS: 36415; 36600; 70450; 71045; 80048; 80051; 80053; 81001; 82330; 82805; 83605; 83735; 83880; 84145; 84443; 84484; 85025; 86140; 87040; 87637; 93005; 93306; 94664; 94760; 96365; 96375; 97110; 97116; 97161; 97165; 97530; 99285; J0456; J0696; J1940; J2470; J3475; J7030; J7050; J9999